=== PATIENT | male | born 1950 | race Caucasian/White ===

== ENCOUNTER → 2017-06-01 | Outpatient (CLI) | payer OTHER, MEDICAID ==
[~2017-06-01] MED LIST: LEXISCAN IV ONE
== END ==
LOC: RAD 08:10
PROVIDERS: ATTEND Internal Medicine Cardiovascular Disease
DX: I25.709 Atherosclerosis of coronary artery bypass graft(s), unspecified, with unspecified angina pectoris (principal); I10 Essential (primary) hypertension; E78.4 Other hyperlipidemia
CPT/HCPCS: 78452; 93017; A4222; A9502; J2785

== ENCOUNTER 2023-05-27 16:00 | Observation (INO) ==
[2023-05-27 16:43] VITALS: RESP 20
[2023-05-27 17:11] VITALS: BMI 26.3
[2023-05-27 18:07] LABS: BASOPHILS # (AUTO) 0.1 X10^3/uL (0.0-0.1); BASOPHILS % (AUTO) 0.7 % (0.2-1.0); EOSINOPHILS # (AUTO) 0.1 x10^3/uL (0.0-0.2); EOSINOPHILS % (AUTO) 0.9 % (0.9-2.9); HEMATOCRIT 35.8 % (36.0-47.0); HEMOGLOBIN 12.4 g/dL (12.0-16.0); LYMPHOCYTES # (AUTO) 1.8 X10^3/uL (1.3-2.9); LYMPHOCYTES % (AUTO) 25.1 % (21.0-51.0); MEAN CORPUSCULAR HEMOGLOBIN 28.8 pg (27.0-34.0); MEAN CORPUSCULAR HGB CONC 34.5 g/dL (33.0-35.0); MEAN CORPUSCULAR VOLUME 83.4 fL (80.0-100.0); MEAN PLATELET VOLUME 9.6 fL (7.4-11.0); MONOCYTES # (AUTO) 0.6 x10^3/uL (0.3-0.8); MONOCYTES % (AUTO) 7.9 % (0.0-13.0); NEUTROPHILS # (AUTO) 4.6 x10^3/uL (2.2-4.8); NEUTROPHILS % (AUTO) 65.4 % (42.0-75.0); PLATELET COUNT 197 X10^3/uL (150.0-450.0); RED BLOOD COUNT 4.29 X10^6/uL (3.5-5.4); RED CELL DISTRIBUTION WIDTH 13.8 % (11.6-16.5)
[2023-05-27] MEDS ORDERED: ZOFRAN INJ 4 MG VIAL IVP PRN (18:10)
[2023-05-27 18:24] LABS: ALANINE AMINOTRANSFERASE 18 Units/L (12-78); ALBUMIN 4.1 g/dL (3.4-5.0); ALKALINE PHOSPHATASE 104 Units/L (46-116); ASPARTATE AMINO TRANSFERASE 19 Units/L (15-37); BLOOD UREA NITROGEN 30 mg/dL (7-18); CALCIUM 9.4 mg/dL (8.5-10.1); CARBON DIOXIDE 34.8 mmol/L (21-32); CHLORIDE 92 mmol/L (98-107); CREATININE 1.59 mg/dL (0.55-1.02); GLUCOSE 101 mg/dL (65-99); POTASSIUM 3.2 mmol/L (3.5-5.1); SODIUM 134 mmol/L (136-145); TOTAL PROTEIN 7.8 g/dL (6.4-8.2); eGFR NON BLACK RACES 34 (>60)
[2023-05-27 18:44] LABS: AMYLASE 52 Units/L (25-115); LIPASE 139 Units/L (73-393)
[2023-05-27] MEDS ORDERED: CONSULT PHARMACY - POTASSIUM & MAGNESIUM XX SCH (19:00)
[2023-05-27] MEDS ORDERED: NS 1,000 ML IV 1,000 ML IV SCH (19:00)
[2023-05-27] MEDS: MAGNESIUM SULFATE 1 GRAM/100 mL PREMIX 1 G/100 ML BAG IV SCH ×2 (21:02→22:09)
[2023-05-27] MEDS: K-RIDER 10 MEQ/NS 100 ML 10 MEQ/100 ML BAG IV SCH (22:30)
--- NOTE | 2023-05-27 22:41 | RAD ---
HISTORYnausea and vomitingSTUDYKUBCOMPARISONNone FINDINGSMedian sternotomy wires are visible. Right upper quadrant clips are noted. There is stimulator type lead in the low pelvis overlying the level of the right SI joint. Visible lung bases are clear. The bowel gas pattern is nonobstructed. No free air.IMPRESSIONNothing acuteElectronically signed by: Salinas Jensen (May 27, 2023 22:40:14)
[2023-05-28] MEDS: K-RIDER 10 MEQ/NS 100 ML 10 MEQ/100 ML BAG IV SCH ×3 (01:28→03:21)
[2023-05-28 06:58] LABS: BASOPHILS % (AUTO) 0.7 % (0.2-1.0); EOSINOPHILS # (AUTO) 0.1 x10^3/uL (0.0-0.2); EOSINOPHILS % (AUTO) 1.8 % (0.9-2.9); HEMATOCRIT 32.6 % (36.0-47.0); HEMOGLOBIN 11.2 g/dL (12.0-16.0); LYMPHOCYTES # (AUTO) 1.5 X10^3/uL (1.3-2.9); LYMPHOCYTES % (AUTO) 29.1 % (21.0-51.0); MEAN CORPUSCULAR HEMOGLOBIN 28.6 pg (27.0-34.0); MEAN CORPUSCULAR HGB CONC 34.4 g/dL (33.0-35.0); MEAN PLATELET VOLUME 9.8 fL (7.4-11.0); MONOCYTES # (AUTO) 0.5 x10^3/uL (0.3-0.8); MONOCYTES % (AUTO) 9.2 % (0.0-13.0); NEUTROPHILS % (AUTO) 59.2 % (42.0-75.0); PLATELET COUNT 179 X10^3/uL (150.0-450.0); RED BLOOD COUNT 3.93 X10^6/uL (3.5-5.4)
[2023-05-28 07:16] LABS: ALANINE AMINOTRANSFERASE 17 Units/L (12-78); ALBUMIN 3.4 g/dL (3.4-5.0); ALKALINE PHOSPHATASE 87 Units/L (46-116); ASPARTATE AMINO TRANSFERASE 19 Units/L (15-37); BLOOD UREA NITROGEN 25 mg/dL (7-18); CARBON DIOXIDE 32.8 mmol/L (21-32); CHLORIDE 96 mmol/L (98-107); CREATININE 1.29 mg/dL (0.55-1.02); GLUCOSE 88 mg/dL (65-99); POTASSIUM 3.4 mmol/L (3.5-5.1); SODIUM 136 mmol/L (136-145); TOTAL PROTEIN 6.7 g/dL (6.4-8.2); eGFR NON BLACK RACES 43 (>60)
[2023-05-28] MEDS ORDERED: NS + KCL 20 MEQ/L 1,000 ML with MAGNESIUM SULFATE 50% INJ VIAL 1 G IV SCH ×2 (08:00)
[2023-05-28] MEDS ORDERED: CONSULT PHARMACY - POTASSIUM & MAGNESIUM XX SCH (08:00)
[2023-05-28] MEDS ORDERED: MAG-OX TAB PO SCH (08:00)
[2023-05-28] MEDS ORDERED: K-DUR TAB 20 MEQ PO SCH (08:00)
[2023-05-28] MEDS: LOVENOX INJ 40 MG SYR SC SCH (09:41)
--- NOTE | 2023-05-28 09:59 | DR.H&P ---
H&P - History & Physical for Day of: H&P Date: 05/27/23 - Chief Complaint Chief Complaint: NAUSEA, VOMITING, DIARRHEA - History of Present Illness History of Present Illness: IS A 73 YEAR OLD PATIENT OF OURS. SHE PRESENTED TO THE HOSPITAL A DIRECT ADMISSION, OBSERVATION STATUS, FOR TREATMENT OF DEHYDRATION DUE TO INTRACTABLE NAUSEA, VOMITING, AND DIARRHEA. PATIENT REPORTS THAT HER SYMPTOMS STARTED AROUND March AND HAVE BEEN PERSISTENT SINCE THEN. SHE STATES THAT SHE IS UNABLE TO KEEP ANYTHING DOWN. SHE HAS TAKEN PHENERGAN AT HOME WITHOUT IMPROVEMENT IN SYMPTOMS. SHE WAS GIVEN AN IM INJECTION OF PHENERGAN IN THE OFFICE 2 DAYS AGO. SHE REPORTS IMPROVEMENT AFTER INJECTION, HOWEVER, SYMPTOMS RETURNED LATER ON IN THE DAY. SHE REPORTS AN 8-10 POUND WEIGHT LOSS SINCE SYMPTOMS STARTED. HER PMH INCLUDES: COPD, HTN, CAD, HYP ERLIPIDEMIA, OVERACTIVE BLADDER, CHRONIC BACK PAIN, CABG, HYSTERECTOMY, ORTHO SURGERY. ON ARRIVAL TO THE HOSPITAL, HER VITALS WERE: 98.0-78-20-96%-104/56. LABS WERE OBTAINED. WBC 7.0, RBC 4.29, HGB 12.4, HCT 35.8, PLT COUNT 197, SODIUM 134, POTASSIUM 3.2, CHLORIDE 92, CARBON DIOXIDE 34.8, BUN 30, CREATININE 1.59, GLUCOSE 101, CALCIUM 9.4, TOTAL BILI 0.70, AST 19, ALT 18, ALK PHOS 104, TOTAL PROTEIN 7.8, ALBUMIN 4.1, AMYLASE 52, LIPASE 139, MAGNESIUM 1.7. A KUB WAS OBTAINED AND REVEALED:Median sternotomy wires are visible. Right upper quadrant clips are noted. There is stimulator type lead in the low pelvis overlying the level of the right SI joint. Visible lung bases are clear. The bowel gas pattern is nonobstructed. No free air. SHE WAS STARTED ON NORMAL SALINE WITH 20MEQ KCL AT 75 ML/HR, LOVENOX 40MG SC DAILY, ZOFRAN 4MG IV Q4H PRN. WE WILL RESUME HER HOME MEDICATIONS OF TOLTERODINE, ROSUVASTATIN, PERCOCET, OXYBUTYNIN, DULOXETINE, AND CLOPIDOGREL. WE WILL ORDER STOOL STUDIES AND A URINALYSIS. OTHERWISE, WE WILL FOLLOW-UP WITH AM LABS AND CONTINUE TO MONITOR. TIME SPENT ON CLINICAL ASSESSMENT, REVIEWING LABS AND IMAGING, DECISION MAKING, AND DOCUMENTATION GREATER THAN 75 MINUTES. - Past Medical History Past Medical History: COPD, Coronary Artery Disease, Dyslipidemia, Hypertension Additional Medical History: OVERACTIVE BLADDER, CHRONIC BACK PAIN - Past Surgical History Surgical History: CABG/Valve Surgery, Hysterectomy, Ortho Surgery - Family History Family Medical History: Diabetes Mellitus, Cancer, [place], Hypertension - Social History Does patient currently use any type of tobacco product: Yes Have you used tobacco products in the last 12 months: Yes Type of Tobacco Use: Cigarettes Alcohol Use: None Drug Use: None - Review of Systems Constitutional: Weakness. denies: Fever Eyes: No Symptoms Reported ENT: No Symptoms Reported Respiratory: No Symptoms Reported Cardiovascular: No Symptoms Reported Gastrointestinal: Nausea, Vomiting, Abdominal Pain, Diarrhea Genitourinary: No Symptoms Reported Musculoskeletal: No Symptoms Reported Skin: No Symptoms Reported Neurological: Weakness - Physical Exam Vital Signs: Vital Signs Temperature 97.7 F Pulse Rate [Left] 58 Respiratory Rate 20 Blood Pressure [Left Arm] 121/60 O2 Sat by Pulse Oximetry 92 Oriented: Normal Eyes: Normal Ear: Normal Nose: Normal Throat: Normal Respiratory: Diminished Throughout Cardiovascular: Normal : Normal Auscultation: Bowel Sounds: Normal Palpation: Normal Tenderness: Diffuse, Mild. negative: Rebound, Guarding, Rigidity Skin: Decreased Turgur Musculoskeletal: Back:Lumbar, Tender Psychiatric: Normal Mood Description: Calm Affect: Normal Speech Pattern: Clear - Assessment/Plan (1) Dehydration Status: Acute Plan: ADMIT, NORMAL SALINE WITH 20MEQ KCL AT 75 ML/HR, LOVENOX 40MG SC DAILY, ZOFRAN 4MG IV Q4H PRN, POTASSIUM AND MAGNESIUM PROTOCOLS (2) Nausea and vomiting Qualifiers: Vomiting type: unspecified Qualified Code(s): R11.2 - Nausea with vomiting, unspecified Status: Acute (3) Intractable diarrhea Status: Acute Plan: STOOL STUDIES (4) Hypokalemia Status: Acute (5) Hypomagnesemia Status: Acute (6) HTN (hypertension) Qualifiers: Hypertension type: primary hypertension Qualified Code(s): I10 - Essential (primary) hypertension Status: Chronic Plan: HOLD BP MEDS FOR NOW DUE TO HYPOTENSION (7) COPD (chronic obstructive pulmonary disease) Qualifiers: COPD type: COPD with acute exacerbation Qualified Code(s): J44.1 - Chronic obstructive pulmonary disease with (acute) exacerbation Status: Chronic Plan: 02 NEEDED, CONTINUE TO MONITOR (8) CAD (coronary artery disease) Qualifiers: Coronary Disease-Associated Artery/Lesion type: bypass graft [place] vs. transplanted heart: [place] heart Status: Chronic Plan: CONTINUE CLOPIDOGREL (9) Hyperlipidemia Qualifiers: Hyperlipidemia type: mixed hyperlipidemia Qualified Code(s): E78.2 - Mixed hyperlipidemia Status: Chronic Plan: CONTINUE ROSUVASTATIN (10) Overactive bladder Status: Chronic Plan: CONTINUE TOLTERODINE AND OXYBUTYNIN (11) Chronic back pain Qualifiers: Back pain location: low back pain Back pain laterality: unspecified Sciatica presence: unspecified whether sciatica present Qualified Code(s): M54.50 - Low back pain, unspecified; G89.29 - Other chronic pain Status: Chronic Plan: CONTINUE PERCOCET - Review H&P Reviewed: Yes Patient was examined?: Yes - Allergies Allergies/Adverse Reactions: Allergies Allergy/AdvReac Type Severity Reaction Status Date / Time aspirin Allergy Verified 04/05/21 10:34 citric acid Allergy Verified 04/05/21 10:34 iodine Allergy Verified 04/05/21 10:34 Penicillins Allergy Verified 04/05/21 10:34 prednisone Allergy Verified 04/05/21 10:34 Sulfa (Sulfonamide Allergy Verified 04/05/21 10:34 Antibiotics) [SULFA] wool Allergy Verified 04/05/21 10:34 - Medications Home Medications: Home Medications Medication Instructions Recorded Confirmed ciprofloxacin HCl 750 mg tablet 750 mg PO BID 05/27/23 05/27/23 clopidogrel 75 mg tablet 75 mg PO QDAY 05/27/23 05/27/23 diphenoxylate-atropine 2.5 1 tab PO QID 05/27/23 05/27/23 mg-0.025 mg tablet duloxetine 30 mg capsule,delayed 30 mg PO QDAY 05/27/23 05/27/23 release isosorbide mononitrate 60 mg 60 mg PO QAM 05/27/23 05/27/23 tablet,extended release 24 hr losartan 50 mg-hydrochlorothiazide 1 tab PO QDAY 05/27/23 05/27/23 12.5 mg tablet oxybutynin chloride 15 mg 15 mg PO QPM bladder pain 05/27/23 05/27/23 tablet,extended release 24 hr oxycodone-acetaminophen 5 mg-325 1 tab PO QID 05/27/23 05/27/23 mg tablet promethazine 25 mg tablet 25 mg PO Q6H nausea/vomiting 05/27/23 05/27/23 rosuvastatin 20 mg tablet 20 mg PO QDAY 05/27/23 05/27/23 tolterodine 4 mg capsule,extended 4 mg PO QPM bladder pain 05/27/23 05/27/23 release 24 hr
[2023-05-28] MEDS: PERCOCET TAB 5/325 MG PO SCH ×4 (10:52→20:33)
[2023-05-28] MEDS: NS + KCL 20 MEQ/L 1,000 ML IV SCH ×2 (10:52→22:46)
[2023-05-28] MEDS: PLAVIX PO SCH (10:53)
[2023-05-28] MEDS: PHENERGAN TAB 25 MG PO SCH ×3 (10:53→22:45)
[2023-05-28] MEDS ORDERED: CYMBALTA PO SCH (11:00)
[2023-05-28 12:18] LABS: CRYPTOSPORIDIUM PARVUM ANTIGEN NEGATIVE (NEGATIVE); GIARDIA LAMBLIA ANTIGEN NEGATIVE (NEGATIVE)
[2023-05-28] MEDS: ZITHROMAX TAB 250 MG PO SCH (13:47)
[2023-05-28] MEDS ORDERED: DETROL LA 4 MG CAP EXT REL PO SCH (21:00)
[2023-05-28] MEDS ORDERED: CRESTOR TAB 10 MG PO SCH (21:00)
[2023-05-28] MEDS ORDERED: OXYBUTYNIN CHLORIDE ER PO SCH (21:00)
[2023-05-28 22:04] LABS: BILIRUBIN,URINE NEGATIVE (NEGATIVE); BLOOD/HEMOGLOBIN,URINE 2+ (NEGATIVE); GLUCOSE, URINE NEGATIVE (NEGATIVE); KETONES,URINE NEGATIVE (NEGATIVE); LEUKOCYTE ESTERASE ,URINE 2+ (NEGATIVE); NITRITES,URINE POSITIVE (NEGATIVE); PROTEIN,URINE 1+ (NEGATIVE); UROBILINOGEN,URINE NORMAL (NORMAL)
[2023-05-28] MEDS ORDERED: TYLENOL 325 MG TAB PO PRN (22:09)
[2023-05-28 22:10] LABS: APPEARANCE,URINE SLIGHTLY HAZY (CLEAR); COLOR,URINE PALE YELLOW (YELLOW)
[2023-05-28 22:11] LABS: BACTERIA,URINE 2+ /HPF (NEGATIVE); RBC,URINE 0-2 /HPF (0-3); SQUAMOUS EPITHELIAL CELL,UR FEW /HPF (NEGATIVE)
[2023-05-29] MEDS: PHENERGAN TAB 25 MG PO SCH ×2 (05:05→12:14)
[2023-05-29 06:07] LABS: BASOPHILS % (AUTO) 0.8 % (0.2-1.0); EOSINOPHILS # (AUTO) 0.1 x10^3/uL (0.0-0.2); EOSINOPHILS % (AUTO) 2.4 % (0.9-2.9); HEMATOCRIT 30.4 % (36.0-47.0); HEMOGLOBIN 10.7 g/dL (12.0-16.0); LYMPHOCYTES # (AUTO) 1.7 X10^3/uL (1.3-2.9); LYMPHOCYTES % (AUTO) 32.7 % (21.0-51.0); MEAN CORPUSCULAR HGB CONC 35.1 g/dL (33.0-35.0); MEAN CORPUSCULAR VOLUME 82.7 fL (80.0-100.0); MEAN PLATELET VOLUME 9.7 fL (7.4-11.0); MONOCYTES # (AUTO) 0.5 x10^3/uL (0.3-0.8); MONOCYTES % (AUTO) 8.9 % (0.0-13.0); NEUTROPHILS # (AUTO) 2.8 x10^3/uL (2.2-4.8); NEUTROPHILS % (AUTO) 55.2 % (42.0-75.0); PLATELET COUNT 156 X10^3/uL (150.0-450.0); RED BLOOD COUNT 3.68 X10^6/uL (3.5-5.4); RED CELL DISTRIBUTION WIDTH 13.8 % (11.6-16.5); WHITE BLOOD COUNT 5.1 X10^3/uL (3.6-10.0)
[2023-05-29 06:17] LABS: ALANINE AMINOTRANSFERASE 14 Units/L (12-78); ALBUMIN 2.9 g/dL (3.4-5.0); ALKALINE PHOSPHATASE 82 Units/L (46-116); ASPARTATE AMINO TRANSFERASE 18 Units/L (15-37); BLOOD UREA NITROGEN 15 mg/dL (7-18); CALCIUM 8.2 mg/dL (8.5-10.1); CARBON DIOXIDE 33.6 mmol/L (21-32); CHLORIDE 98 mmol/L (98-107); COR CA(FOR HYPOALB) 9.1 mg/dL (8.5-10.1); CREATININE 1.25 mg/dL (0.55-1.02); GLUCOSE 90 mg/dL (65-99); POTASSIUM 3.9 mmol/L (3.5-5.1); SODIUM 135 mmol/L (136-145); TOTAL PROTEIN 5.9 g/dL (6.4-8.2); eGFR NON BLACK RACES 45 (>60)
[2023-05-29] MEDS ORDERED: ISOSORBIDE MONONITRATE ER 24-HR PO SCH (09:00)
[2023-05-29] MEDS: LOVENOX INJ 40 MG SYR SC SCH (09:33)
[2023-05-29] MEDS: ZITHROMAX TAB 250 MG PO SCH (09:34)
[2023-05-29] MEDS: PERCOCET TAB 5/325 MG PO SCH (09:34)
[2023-05-29] MEDS: PLAVIX PO SCH (09:34)
[2023-05-29 12:16] VITALS: BP 110/53; PULSE 57; TEMP 97.9; O2SAT 97
== END 2023-05-29 13:18 | disposition home or self-care (01) ==
LOC: MED/SURG
PROVIDERS: ADMIT Internal Medicine; ATTEND Internal Medicine

== ENCOUNTER 2023-09-03 09:11 | Inpatient (IN) ==
--- NOTE | 2023-09-03 09:17 | DR.EXTPAIN ---
HPI Time seen Time Seen by Provider: 09/03/23 09:30 Complaint/Symptoms Chief Complaint Doctor Comments: 73-year-old female brought in for evaluation by EMS. Patient was about to sit down to have coffee, when dogs attacked her dog outside. Patient went outside and was subsequently attacked by 2 pit bulls. Patient has a significant laceration of the right forearm. Also laceration of the L posterior foot/ankle. Bleeding controlled by EMS. Also has other puncture wounds, left hand, left forearm, left foot/ankle. Has been weak and lightheaded since the attack. Patient's BP low at the scene. Patient is on blood pressure medications, she states she has not been eating very well over the past few weeks due to needing her esophagus stretched. Denies recent illness, no fevers, chills, URI symptoms, bowel or bladder complaints. Having pain of the nares, plus pain of her right foot. No head injury, no loss of consciousness, no neck or back pain. Animal Control has reportedly taking cus tody of the dogs. Nurses notes reviewed Nurses Notes Review: Yes Source History Provided: Patient and EMS PMH PMH Past Medical History: COPD, Coronary Artery Disease, Dyslipidemia and Hypertension Past Surgical History: Yes Surgical History: CABG/Valve Surgery, Hysterectomy and Ortho Surgery Family History Family Medical History: Diabetes Mellitus, Cancer, [place] and Hypertension ROS Review of Systems Constitutional: Weakness Eyes: No Symptoms Reported ENTM: No Symptoms Reported Respiratoy: No Symptoms Reported Cardiovascular: No Symptoms Reported Gastrointestinal/Abdominal: No Symptoms Reported Genitourinary: No Symptoms Reported Neurological: No Symptoms Reported Musculoskeletal: See HPI Integumentary: See HPI All Other Systems: Reviewed and Negative PE Vital Signs Vitals: Vital Signs Pulse Rate 68 Pulse Rate 66 Pulse Rate 71 Pulse Rate 73 Pulse Rate 78 Pulse Rate 70 Pulse Rate 66 Pulse Rate 68 Pulse Rate 70 Pulse Rate 69 Pulse Rate 64 Pulse Rate 68 Pulse Rate 64 Respiratory Rate 20 Respiratory Rate 20 Respiratory Rate 20 Respiratory Rate 20 Respiratory Rate 20 Respiratory Rate 20 Respiratory Rate 20 Respiratory Rate 32 Blood Pressure 118/62 Blood Pressure 134/66 Blood Pressure 119/60 Blood Pressure 121/61 Blood Pressure 120/57 Blood Pressure 120/60 Blood Pressure 123/60 Blood Pressure 111/59 Blood Pressure 118/60 Blood Pressure 111/55 Blood Pressure 112/57 Blood Pressure 102/55 Blood Pressure 95/50 Blood Pressure 98/54 Blood Pressure 108/54 Blood Pressure 98/53 Blood Pressure 130/60 Blood Pressure 116/57 Blood Pressure 122/56 O2 Sat by Pulse Oximetry 97 O2 Sat by Pulse Oximetry 97 O2 Sat by Pulse Oximetry 98 O2 Sat by Pulse Oximetry 98 O2 Sat by Pulse Oximetry 98 O2 Sat by Pulse Oximetry 98 O2 Sat by Pulse Oximetry 98 O2 Sat by Pulse Oximetry 97 O2 Sat by Pulse Oximetry 95 O2 Sat by Pulse Oximetry 96 O2 Sat by Pulse Oximetry 100 O2 Sat by Pulse Oximetry 100 O2 Sat by Pulse Oximetry 96 General General Appearance: Alert and In Distress Head Head Exam: Normal Inspection Eyes Eye exam: PERRL and EOMI ENT ENT Exam: Normal Oropharynx and Mucous Membranes Moist Neck Neck Exam: Normal Inspection Respiratory Respiratory Exam: Normal Lung Sounds Bilat; negative Accessory Muscle Use or Respiratory Distress Cardiovascular Cardiovascular Exam: Regular Rate, Normal Rhythm and Normal Heart Sounds Abdominal Exam Abdominal Exam: Soft; negative Tenderness Lower Extremities Foot/Toe Exam: Tenderness (R great toe region ( no wounds there), L ankle/foot - several puncture wounds, lac) Neurological Neurological Exam: Alert, Oriented X3 and CN II-XII Intact; negative Motor Sensory Deficit Skin Skin Exam: Warm and Dry Other Exam Other Exam: Multiple wounds - R dorsal forearm, 2.5 x 3 cm open, macerated wound, loss of tissue, + oozing. + multiple puncture wounds - of volar R FA, dorsal L FA, L hand, multiple of L posterior ankle, 3 cm linear wound, well opposed, posterior L ankle, COURSE Treatment Treatment: 73-year-old female attacked by dogs today while trying to save her dog. Has multiple puncture wounds of her extremities, large open wound/loss of tissue of her right forearm. BP low on arrival, was given IV fluids by EMS. BP better on arrival. We will continue IV fluids. Will check baseline labs. Patient has not been eating well due to esophageal issues. Patient given IV morphine, IM Phenergan. We will x-ray the affected areas. Tetanus booster given. Pt is PCN allergic, given IV doxycycline. 1333 -consulted with surgery, Dr. Colmenares, for the open wound of her right forearm. Came to evaluate the patient. Recommended Xeroform to the arm, dressing. He will admit for obser vation, continue IV doxycycline and IV pain medicine as needed. [facility] Labs Reviewed Laboratory Results Reviewed?: Yes 09/03/23 09:34 11/09/23 09:34 Laboratory: WBC 9.9 X10^3/uL (3.6-10.0) 09/03/23 09:34 RBC 4.07 X10^6/uL (3.5-5.4) 09/03/23 09:34 Hgb 11.9 g/dL (12.0-16.0) L 09/03/23 09:34 Hct 36.0 % (36.0-47.0) 09/03/23 09:34 MCV 88.3 fL (80.0-100.0) 09/03/23 09:34 MCH 29.3 pg (27.0-34.0) 09/03/23 09:34 MCHC 33.2 g/dL (33.0-35.0) 09/03/23 09:34 RDW 14.5 % (11.6-16.5) 09/03/23 09:34 Plt Count 179 X10^3/uL (150.0-450.0) 09/03/23 09:34 MPV 10.4 fL (7.4-11.0) 09/03/23 09:34 Neut % (Auto) 69.5 % (42.0-75.0) 09/03/23 09:34 Lymph % (Auto) 22.9 % (21.0-51.0) 09/03/23 09:34 [place] % (Auto) 6.1 % (0.0-13.0) 09/03/23 09:34 Eos % (Auto) 1.0 % (0.9-2.9) 09/03/23 09:34 Baso % (Auto) 0.5 % (0.2-1.0) 09/03/23 09:34 Neut # (Auto) 6.9 x10^3/uL (2.2-4.8) H 09/03/23 09:34 Lymph # (Auto) 2.3 X10^3/uL (1.3-2.9) 09/03/23 09:34 [place] # (Auto) 0.6 x10^3/uL (0.3-0.8) 09/03/23 09:34 Eos # (Auto) 0.1 x10^3/uL (0.0-0.2) 09/03/23 09:34 Baso # (Auto) 0.0 X10^3/uL (0.0-0.1) 09/03/23 09:34 Absolute Nucleated RBC 0.0 /100WBC 09/03/23 09:34 Sodium 138 mmol/L (136-145) 09/03/23 09:34 Corrected Sodium 139 mmol/L (136-145) 09/03/23 09:34 Potassium 3.1 mmol/L (3.5-5.1) L 09/03/23 09:34 Chloride 102 mmol/L (98-107) 09/03/23 09:34 Carbon Dioxide 27.8 mmol/L (21-32) 09/03/23 09:34 BUN 15 mg/dL (7-18) 09/03/23 09:34 Creatinine 1.26 mg/dL (0.55-1.02) H 09/03/23 09:34 Est GFR (MDRD) Af Amer 54 (>60) L 09/03/23 09:34 Est GFR (MDRD) Non-Af 44 (>60) L 09/03/23 09:34 Glucose 125 mg/dL (65-99) H 09/03/23 09:34 Calcium 8.6 mg/dL (8.5-10.1) 09/03/23 09:34 Corrected Calcium 9.4 mg/dL (8.5-10.1) 09/03/23 09:34 Total Bilirubin 0.40 mg/dL (0.2-1.0) 09/03/23 09:34 AST 15 Units/L (15-37) 09/03/23 09:34 ALT 6 Units/L (12-78) L 09/03/23 09:34 Alkaline Phosphatase 87 Units/L (46-116) 09/03/23 09:34 Total Protein 6.4 g/dL (6.4-8.2) 09/03/23 09:34 Albumin 3.0 g/dL (3.4-5.0) L 09/03/23 09:34 Globulin 3.4 g/dL (2.5-4.5) 09/03/23 09:34 Albumin/Globulin Ratio 0.9 Ratio (1.1-2.1) L 09/03/23 09:34 XRAY XRAY Interpreted by: Self X-ray Results: No obvious fractures with multiple x-rays. Has gas in the soft tissue of the left posterior ankle region. Opioid Opioid Risk Tool Age (Justin box if 16-45): No History of Preadolescent Sexual Abuse: No Total: 0 Total Score Risk Category: Low Risk Copyright: Dony CORDOVA predicting aberrant behaviors Discharge Plan Diagnosis Discharge Problem: Open wound of right forearm, Dog bite of multiple sites Discharge Plan Patient Disposition: ADMITTED INPATIENT Condition: Stable Prescriptions: No Action oxybutynin chloride 15 mg tablet extended release 24hr 15 mg PO QPM gabapentin 400 mg capsule 400 mg PO QPM clopidogrel 75 mg tablet 75 mg PO QDAY pantoprazole 40 mg tablet,delayed release (DR/EC) 40 mg PO BID promethazine 25 mg tablet 25 mg PO Q6H PRN losartan-hydrochlorothiazide 50-12.5 mg tablet 1 tab PO QDAY rosuvastatin 20 mg tablet 20 mg PO QDAY duloxetine 30 mg capsule,delayed release(DR/EC) 30 mg PO QDAY isosorbide mononitrate 60 mg tablet extended release 24 hr 60 mg PO QAM Health Concerns: Post Hospitalization: new medications and changes needed to prevent readmission or further decline. Pt educated and given instructions on all concerns. Plan of Treatment: Continue with present treatment and follow up plan. Pt is to keep follow up appointment as instructed and take medications as ordered. Orders to Discharge Patient Discharge Orders: Transfer (Routine); Ordered 09/03/23 Ordered By: Kurtis Skaggs Follow ups/Referrals Follow ups/Referrals: Richard Schroeder [Primary Care Provider] - 3 days
[2023-09-03] MEDS ORDERED: ZOFRAN INJ 4 MG VIAL IVP ONE (09:18)
[2023-09-03] MEDS ORDERED: NS 500 ML IV 500 ML IV ONE ×2 (09:19→09:23)
[2023-09-03] MEDS ORDERED: ZOFRAN INJ 4 MG VIAL ONE (09:23)
[2023-09-03] MEDS ORDERED: MORPHINE SULFATE INJ 4 MG ONE (09:23)
[2023-09-03] MEDS ORDERED: PHENERGAN INJ 25 MG IM ONE ×2 (09:25→09:26)
[2023-09-03] MEDS: MORPHINE SULFATE INJ 4 MG IVP ONE ×3 (09:27→11:13)
[2023-09-03] MEDS ORDERED: ADACEL or BOOSTRIX TDaP VACCINE IM ONE ×2 (09:31→09:33)
[2023-09-03 09:43] LABS: BASOPHILS % (AUTO) 0.5 % (0.2-1.0); EOSINOPHILS # (AUTO) 0.1 x10^3/uL (0.0-0.2); HEMOGLOBIN 11.9 g/dL (12.0-16.0); LYMPHOCYTES # (AUTO) 2.3 X10^3/uL (1.3-2.9); LYMPHOCYTES % (AUTO) 22.9 % (21.0-51.0); MEAN CORPUSCULAR HEMOGLOBIN 29.3 pg (27.0-34.0); MEAN CORPUSCULAR HGB CONC 33.2 g/dL (33.0-35.0); MEAN CORPUSCULAR VOLUME 88.3 fL (80.0-100.0); MEAN PLATELET VOLUME 10.4 fL (7.4-11.0); MONOCYTES # (AUTO) 0.6 x10^3/uL (0.3-0.8); MONOCYTES % (AUTO) 6.1 % (0.0-13.0); NEUTROPHILS # (AUTO) 6.9 x10^3/uL (2.2-4.8); NEUTROPHILS % (AUTO) 69.5 % (42.0-75.0); PLATELET COUNT 179 X10^3/uL (150.0-450.0); RED BLOOD COUNT 4.07 X10^6/uL (3.5-5.4); RED CELL DISTRIBUTION WIDTH 14.5 % (11.6-16.5); WHITE BLOOD COUNT 9.9 X10^3/uL (3.6-10.0)
[2023-09-03 09:56] LABS: CALCIUM 8.6 mg/dL (8.5-10.1); CARBON DIOXIDE 27.8 mmol/L (21-32); COR CA(FOR HYPOALB) 9.4 mg/dL (8.5-10.1); CREATININE 1.26 mg/dL (0.55-1.02); POTASSIUM 3.1 mmol/L (3.5-5.1); TOTAL PROTEIN 6.4 g/dL (6.4-8.2)
[2023-09-03] MEDS ORDERED: NS 100 ML IV 100 ML ONE (10:04)
[2023-09-03] MEDS ORDERED: VIBRAMYCIN IV ONE (10:04)
[2023-09-03] MEDS ORDERED: NS 1,000 ML IV 1,000 ML ONE (10:05)
[2023-09-03] MEDS: VIBRAMYCIN 100 MG in D5W 250 ML IV 250 ML IV SCH ×2 (10:10→20:12)
[2023-09-03] MEDS ORDERED: DILAUDID INJ IVP ONE ×2 (10:21→11:15)
[2023-09-03] MEDS ORDERED: DILAUDID INJ ONE ×3 (10:23→13:39)
[2023-09-03] MEDS ORDERED: BACTROBAN TOPICAL OINT TOP ONE (10:33)
[2023-09-03] MEDS ORDERED: HYDROGEN PEROXIDE 3% ONE (10:38)
[2023-09-03] MEDS ORDERED: NEOSPORIN OINT ONE (10:38)
[2023-09-03] MEDS ORDERED: STERILE WATER IRRIGATION IR ONE ×2 (10:38→11:20)
[2023-09-03] MEDS ORDERED: BACITRACIN ZINC ONE (11:05)
[2023-09-03] MEDS ORDERED: NEOSPORIN OINT TOP ONE (11:18)
[2023-09-03] MEDS ORDERED: HYDROGEN PEROXIDE 3% EXT ONE (11:20)
[2023-09-03] MEDS ORDERED: NS 1,000 ML IV 1,000 ML IV SCH (12:00)
--- NOTE | 2023-09-03 13:00 | RAD ---
EXAM:CHEST, 1 VIEWHISTORY:ATTACKED BY DOGS;COMPARISON:NoneFINDINGS:Heart: The cardiomediastinal silhouette is normal in size.Lungs: No acute airspace disease.Pleural space: No conspicuous pneumothorax or effusion.Bones:The bony thorax appears age appropriate.IMPRESSION:1. No acute cardiopulmonary disease.THIS IS AN ELECTRONICALLY VERIFIED FINAL [id number]/03/2023 12:57 PM - Electronically signed by Nicola Blandon DO
[2023-09-03] MEDS ORDERED: DILAUDID INJ IVP STA (13:32)
[2023-09-03] MEDS ORDERED: PHENERGAN TAB 25 MG PO PRN (15:01)
[2023-09-03] MEDS ORDERED: CONSULT PHARMACY - POTASSIUM & MAGNESIUM XX SCH ×3 (15:01→22:00)
[2023-09-03 16:05] VITALS: BMI 24.5
[2023-09-03] MEDS: K-DUR TAB 20 MEQ PO SCH ×3 (17:01→20:12)
[2023-09-03] MEDS: D5 1/2 NS 1,000 ML 1,000 ML IV SCH (17:01)
[2023-09-03] MEDS: PERCOCET TAB 5/325 MG PO PRN (17:49)
--- NOTE | 2023-09-03 18:22 | RAD ---
EXAM:FOREARM, RIGHTHISTORY:ATTACKED BY DOGS;COMPARISON:None.TECHNIQUE:Right forearm x-ray series two viewsFINDINGS:Radiographic evidence of soft tissue injury and small amounts of subcutaneous gas at the site without radiopaque foreign body or acute fracture. The forearm remains anatomically aligned.IMPRESSION:Soft tissue injury and small amounts of subcutaneous gas of the mid forearm without fracture or radiopaque foreign bodyTHIS IS AN ELECTRONICALLY VERIFIED FINAL [id number]/03/2023 6:19 PM - Electronically signed by Isak Neff MD
[2023-09-03] MEDS: MAG-OX TAB PO SCH ×2 (20:13→20:41)
[2023-09-03] MEDS: PROTONIX TAB 40 MG PO SCH (20:13)
[2023-09-03] MEDS: OXYBUTYNIN CHLORIDE ER PO SCH (20:13)
[2023-09-03] MEDS: NEURONTIN CAP 400 MG PO SCH (20:26)
[2023-09-03] MEDS: DILAUDID INJ IVP PRN (20:37)
--- NOTE | 2023-09-03 20:49 | RAD ---
EXAM:HAND, LEFTHISTORY:ATTACKED BY DOGS;COMPARISON:None.TECHNIQUE:AP, lateral, and oblique views were acquired.FINDINGS:The alignment is anatomic. There is no fracture or dislocation. There is mild degeneration. There is no worrisome soft tissue abnormality.IMPRESSION:Nothing acute.THIS IS AN ELECTRONICALLY VERIFIED FINAL [id number]/03/2023 8:46 PM - Electronically signed by Chris Guillory MD
--- NOTE | 2023-09-03 20:51 | RAD ---
EXAM:FOOT, LEFTHISTORY:ATTACKED BY DOGS;COMPARISON:None.TECHNIQUE:AP and lateral views were acquiredFINDINGS:There is no fracture. There is mild degeneration in the forefoot. There is no joint effusion. There is some gas in the soft tissue on the dorsal aspect of the ankle anterior to the Achilles tendon..IMPRESSION:Soft tissue injury but no bone injury.THIS IS AN ELECTRONICALLY VERIFIED FINAL [id number]/03/2023 8:48 PM - Electronically signed by Chris Guillory MD
--- NOTE | 2023-09-03 20:53 | RAD ---
EXAM:FOOT, RIGHTHISTORY:ATTACKED BY DOGS;COMPARISON:None.TECHNIQUE:AP and lateral views were acquiredFINDINGS:There is no fracture. There is minor degeneration. There is a small plantar calcaneal spur. There is no joint effusion. Soft tissues are unremarkable.IMPRESSION:Nothing acute.THIS IS AN ELECTRONICALLY VERIFIED FINAL [id number]/03/2023 8:49 PM - Electronically signed by Chris Guillory MD
[2023-09-03] MEDS ORDERED: VIBRAMYCIN 100 MG in D5W 250 ML IV 250 ML IV SCH (21:00)
[2023-09-04] MEDS ORDERED: K-RIDER 10 MEQ/NS 100 ML 10 MEQ/100 ML BAG IV SCH
[2023-09-04] MEDS ORDERED: MAGNESIUM SULFATE 1 GRAM/100 mL PREMIX 1 G/100 ML BAG IV SCH
[2023-09-04] MEDS: DILAUDID INJ IVP PRN ×3 (00:46→20:58)
[2023-09-04] MEDS: PERCOCET TAB 5/325 MG PO PRN ×2 (04:22→08:25)
[2023-09-04 04:55] LABS: BILIRUBIN,URINE NEGATIVE (NEGATIVE); BLOOD/HEMOGLOBIN,URINE NEGATIVE (NEGATIVE); GLUCOSE, URINE NEGATIVE (NEGATIVE); KETONES,URINE NEGATIVE (NEGATIVE); LEUKOCYTE ESTERASE ,URINE 1+ (NEGATIVE); NITRITES,URINE NEGATIVE (NEGATIVE); PROTEIN,URINE 1+ (NEGATIVE); UROBILINOGEN,URINE NORMAL (NORMAL)
[2023-09-04 05:11] LABS: APPEARANCE,URINE SLIGHTLY HAZY (CLEAR); BACTERIA,URINE 1+ /HPF (NEGATIVE); COLOR,URINE DARK YELLOW (YELLOW); RBC,URINE NONE SEEN /HPF (0-3); SQUAMOUS EPITHELIAL CELL,UR MANY /HPF (NEGATIVE)
[2023-09-04 05:12] LABS: GRANULAR CASTS,URINE RARE /LPF (NEGATIVE); HYALINE CASTS, URINE RARE /LPF (NEGATIVE)
[2023-09-04] MEDS: D5 1/2 NS 1,000 ML 1,000 ML IV SCH ×3 (05:24→17:36)
[2023-09-04 06:11] LABS: BASOPHILS % (AUTO) 0.3 % (0.2-1.0); EOSINOPHILS % (AUTO) 0.2 % (0.9-2.9); HEMATOCRIT 29.9 % (36.0-47.0); HEMOGLOBIN 10.1 g/dL (12.0-16.0); LYMPHOCYTES # (AUTO) 1.3 X10^3/uL (1.3-2.9); LYMPHOCYTES % (AUTO) 21.4 % (21.0-51.0); MEAN CORPUSCULAR HEMOGLOBIN 29.5 pg (27.0-34.0); MEAN CORPUSCULAR HGB CONC 33.6 g/dL (33.0-35.0); MEAN CORPUSCULAR VOLUME 87.8 fL (80.0-100.0); MEAN PLATELET VOLUME 10.4 fL (7.4-11.0); MONOCYTES # (AUTO) 0.9 x10^3/uL (0.3-0.8); MONOCYTES % (AUTO) 14.5 % (0.0-13.0); NEUTROPHILS # (AUTO) 3.9 x10^3/uL (2.2-4.8); NEUTROPHILS % (AUTO) 63.6 % (42.0-75.0); PLATELET COUNT 134 X10^3/uL (150.0-450.0); RED BLOOD COUNT 3.41 X10^6/uL (3.5-5.4); RED CELL DISTRIBUTION WIDTH 14.4 % (11.6-16.5); WHITE BLOOD COUNT 6.1 X10^3/uL (3.6-10.0)
[2023-09-04 06:24] LABS: ALANINE AMINOTRANSFERASE 6 Units/L (12-78); ALBUMIN 2.5 g/dL (3.4-5.0); ALKALINE PHOSPHATASE 71 Units/L (46-116); ASPARTATE AMINO TRANSFERASE 19 Units/L (15-37); BLOOD UREA NITROGEN 14 mg/dL (7-18); CALCIUM 7.8 mg/dL (8.5-10.1); CARBON DIOXIDE 29.5 mmol/L (21-32); CHLORIDE 100 mmol/L (98-107); CREATININE 0.94 mg/dL (0.55-1.02); GLUCOSE 101 mg/dL (65-99); POTASSIUM 3.7 mmol/L (3.5-5.1); SODIUM 136 mmol/L (136-145); TOTAL PROTEIN 5.7 g/dL (6.4-8.2); eGFR NON BLACK RACES > 60 (>60)
[2023-09-04] MEDS ORDERED: CONSULT PHARMACY - POTASSIUM & MAGNESIUM XX SCH (07:00)
[2023-09-04] MEDS ORDERED: K-RIDER 10 MEQ/NS 100 ML 20 MEQ/200 ML BAG IV ONE (09:00)
[2023-09-04] MEDS: K-DUR TAB 20 MEQ PO SCH ×2 (10:45→20:34)
[2023-09-04] MEDS: HYZAAR 50/12.5 MG PO SCH (10:45)
[2023-09-04] MEDS: ISOSORBIDE MONONITRATE ER 24-HR PO SCH (10:45)
[2023-09-04] MEDS: CRESTOR TAB 10 MG PO SCH (10:46)
[2023-09-04] MEDS: PROTONIX TAB 40 MG PO SCH (10:46)
[2023-09-04] MEDS: CYMBALTA PO SCH ×2 (10:46→11:09)
[2023-09-04] MEDS: MAGNESIUM SULFATE 1 GRAM/100 mL PREMIX 1 G/100 ML BAG IV SCH ×2 (10:47→10:51)
[2023-09-04] MEDS: BENADRYL CAP/TAB 25 MG PO SCH ×2 (10:50→19:07)
[2023-09-04] MEDS: PLAVIX PO SCH (10:50)
[2023-09-04] MEDS ORDERED: BENADRYL CAP 50 MG PO SCH (11:00)
--- NOTE | 2023-09-04 13:05 | DR.PROGNOT ---
HOSPITAL PROGRESS NOTE Progress Note for Day of: Progress Note Date: 09/04/23 Chief Complaint Chief Complaint: Patient is complaining of pain at the dog bite site, complaining of numbness and difficulty walking on her left foot. White count is normal as well as the electrolytes. Afebrile and stable vital signs. Past Medical Family Social History Past Med/Fam/Surg Hx: No changes since H&P Allergies: Allergies aspirin Allergy (Verified 09/03/23 10:21) citric acid Allergy (Verified 09/03/23 10:) iodine Allergy (Verified 09/03/23 10:) Penicillins Allergy (Verified 09/03/23 10:) prednisone Allergy (Verified 09/03/23 10:) Sulfa (Sulfonamide Antibiotics) [SULFA] Allergy (Verified 09/03/23 10:) wool Allergy (Verified 09/03/23:) Vital Signs Vital Signs: Vital Signs Temperature 98.5 F Pulse Rate [Right] 69 Respiratory Rate 20 Respiratory Rate 20 Respiratory Rate 18 Blood Pressure [Left Arm] 111/52 O2 Sat by Pulse Oximetry 91 Physical Exam Oriented: Normal Eyes: Normal Ear: Normal Nose: Normal Throat: Normal Respiratory: Normal Cardiovascular: Normal GI:Auscultation: Normal Skin: Other (Patient has multiple lacerations on the right forearm left forearm and hand and both legs. No active infection..) Speech Pattern: Clear and Appropriate Laboratory and Diagnostics 09/04/23 05:39 09/04/23 05:39 Labs: Laboratory WBC 6.1 X10^3/uL (3.6-10.0) 09/04/23 05:39 RBC 3.41 X10^6/uL (3.5-5.4) L 09/04/23 05:39 Hgb 10.1 g/dL (12.0-16.0) L 09/04/23 05:39 Hct 29.9 % (36.0-47.0) L 09/04/23 05:39 MCV 87.8 fL (80.0-100.0) 09/04/23 05:39 MCH 29.5 pg (27.0-34.0) 09/04/23 05:39 MCHC 33.6 g/dL (33.0-35.0) 09/04/23 05:39 RDW 14.4 % (11.6-16.5) 09/04/23 05:39 Plt Count 134 X10^3/uL (150.0-450.0) L 09/04/23 05:39 MPV 10.4 fL (7.4-11.0) 09/04/23 05:39 Neut % (Auto) 63.6 % (42.0-75.0) 09/04/23 05:39 Lymph % (Auto) 21.4 % (21.0-51.0) 09/04/23 05:39 [place] % (Auto) 14.5 % (0.0-13.0) H 09/04/23 05:39 Eos % (Auto) 0.2 % (0.9-2.9) L 09/04/23 05:39 Baso % (Auto) 0.3 % (0.2-1.0) 09/04/23 05:39 Neut # (Auto) 3.9 x10^3/uL (2.2-4.8) 09/04/23 05:39 Lymph # (Auto) 1.3 X10^3/uL (1.3-2.9) 09/04/23 05:39 [place] # (Auto) 0.9 x10^3/uL (0.3-0.8) H 09/04/23 05:39 Eos # (Auto) 0.0 x10^3/uL (0.0-0.2) 09/04/23 05:39 Baso # (Auto) 0.0 X10^3/uL (0.0-0.1) 09/04/23 05:39 Absolute Nucleated RBC 0.1 /100WBC 09/04/23 05:39 Sodium 136 mmol/L (136-145) 09/04/23 05:39 Corrected Sodium TNP 09/04/23 05:39 Potassium 3.7 mmol/L (3.5-5.1) 09/04/23 05:39 Chloride 100 mmol/L (98-107) 09/04/23 05:39 Carbon Dioxide 29.5 mmol/L (21-32) 09/04/23 05:39 BUN 14 mg/dL (7-18) 09/04/23 05:39 Creatinine 0.94 mg/dL (0.55-1.02) 09/04/23 05:39 Est GFR (MDRD) Af Amer > 60 (>60) 09/04/23 05:39 Est GFR (MDRD) Non-Af > 60 (>60) 09/04/23 05:39 Glucose 101 mg/dL (65-99) H 09/04/23 05:39 POC Glucose (mg/dL) 106 mg/dL (65-99) H 09/04/23 05:08 Calcium 7.8 mg/dL (8.5-10.1) L 09/04/23 05:39 Corrected Calcium 9.0 mg/dL (8.5-10.1) 09/04/23 05:39 Magnesium 1.5 mg/dL (2.0-2.9) L 09/04/23 05:39 Total Bilirubin 0.80 mg/dL (0.2-1.0) 09/04/23 05:39 AST 19 Units/L (15-37) 09/04/23 05:39 ALT 6 Units/L (12-78) L 09/04/23 05:39 Alkaline Phosphatase 71 Units/L (46-116) 09/04/23 05:39 Total Protein 5.7 g/dL (6.4-8.2) L 09/04/23 05:39 Albumin 2.5 g/dL (3.4-5.0) L 09/04/23 05:39 Globulin 3.2 g/dL (2.5-4.5) 09/04/23 05:39 Albumin/Globulin Ratio 0.8 Ratio (1.1-2.1) L 09/04/23 05:39 Specimen Type Clean catch urine 09/04/23 04:45 Urine Color Dark yellow (YELLOW) 09/04/23 04:45 Urine Appearance Slightly hazy (CLEAR) 09/04/23 04:45 Urine pH 5.0 (5.0 - 8.0) 09/04/23 04:45 Ur Specific [place] 1.020 (1.000-1.030) 09/04/23 04:45 Urine Protein 1+ (NEGATIVE) 09/04/23 04:45 Urine Glucose (UA) Negative (NEGATIVE) 09/04/23 04:45 Urine Ketones Negative (NEGATIVE) 09/04/23 04:45 Urine Blood Negative (NEGATIVE) 09/04/23 04:45 Urine Nitrite Negative (NEGATIVE) 09/04/23 04:45 Urine Bilirubin Negative (NEGATIVE) 09/04/23 04:45 Urine Urobilinogen Normal (NORMAL) 09/04/23 04:45 Ur Leukocyte Esterase 1+ (NEGATIVE) 09/04/23 04:45 Urine RBC None seen /HPF (0-3) 09/04/23 04:45 Urine WBC 3-5 /HPF (0-5) 09/04/23 04:45 Ur Squamous Epith Cells Many /HPF (NEGATIVE) 09/04/23 04:45 Urine Bacteria 1+ /HPF (NEGATIVE) 09/04/23 04:45 Hyaline Casts Rare /LPF (NEGATIVE) 09/04/23 04:45 Granular Casts Rare /LPF (NEGATIVE) 09/04/23 04:45 Urine Mucus Few /HPF (NEGATIVE) 09/04/23 04:45 Ur Culture Indicated? No/not indicated 09/04/23 04:45 Assessment and Plan 1: Multiple dog bites on the upper and lower extremities.. To continue local care, pain control, IV antibiotics.. Problem Patient Problems: Patient Problems Open wound of right forearm (Acute) S51.801A Dog bite of multiple sites (Acute) W54.0XXA
--- NOTE | 2023-09-04 14:38 | DR.UPDATE ---
H&P UPDATE Review Yes Any changes to H&P?: No Patient was examined?: Yes
--- NOTE | 2023-09-04 14:44 | PCM.PROG ---
Progress Note Progress Note for Day of Date of Exam: 09/04/23 Subjective Subjective: PT IS 73 WF, ER ADMISSION WITH LACERATIONS TO RIGHT UPPER EXTREMITY AND BILATERAL LOWER EXTREMITIES FROM DOG BITES. PT WAS ASSESSED BY DR PARKER WITH CLEAN, INTACT DRESSINGS THIS MORNING. PT HAS BEEN ON IV OPIOID PAIN CONTROL, IV ATBX AND IV HDYRATION. PT CONTINUES TO CO PAIN TO WOUNDS THIS MORNING. PT STATES SHE TAKES NORCO 7.5 AT HOME FOR CHRONIC PAIN AND NEEDS HER HOME MEDICATION RESUMED. PT HAS PMH OF CAD WITH BYPASS, COPD, HTN, MUNDO, NEUROPATHY AND GERD. Past Medical Family Social History Past Med/Fam/Surg Hx: No changes since H&P Allergies: Allergies aspirin Allergy (Verified 09/03/23 10:21) citric acid Allergy (Verified 09/03/23 10:21) iodine Allergy (Verified 09/03/23 10:21) Penicillins Allergy (Verified 09/03/23 10:21) prednisone Allergy (Verified 09/03/23 10:21) Sulfa (Sulfonamide Antibiotics) [SULFA] Allergy (Verified 09/03/23 10:21) wool Allergy (Verified 09/03/23 10:21) Vital Signs and I&O's Vital Signs: Vital Signs Temperature 98.6 F Temperature 98.5 F Pulse Rate [Right] 70 Pulse Rate [Right] 69 Respiratory Rate 18 Respiratory Rate 20 Respiratory Rate 20 Blood Pressure [Left Arm] 117/56 Blood Pressure [Left Arm] 111/52 O2 Sat by Pulse Oximetry 93 O2 Sat by Pulse Oximetry 91 Intake and Output: Intake & Output 09/02/23 09/03/23 09/04/23 09/05/23 11:59 11:59 11:59 11:59 Intake Total 1580 / 1580 Balance 1580 / 1580 Physical Exam Nose: Normal Throat: Normal and Dry Respiratory: Normal and Diminished Cardiovascular: Normal (CABG SCAR PRESENT); negative Edema Auscultation: Bowel Sounds: Normal Skin: Other (Patient has multiple lacerations on the right forearm left forearm and hand and both legs. No active infection..) Musculoskeletal: Left, Shoulder and Elbow Psychiatric: Anxiety Mood Description: Anxious Affect: Anxious Speech Pattern: Clear and Appropriate Laboratory and Diagnostics 09/04/23 05:39 09/04/23 05:39 Labs: Laboratory WBC 6.1 X10^3/uL (3.6-10.0) 09/04/23 05:39 RBC 3.41 X10^6/uL (3.5-5.4) L 09/04/23 05:39 Hgb 10.1 g/dL (12.0-16.0) L 09/04/23 05:39 Hct 29.9 % (36.0-47.0) L 09/04/23 05:39 MCV 87.8 fL (80.0-100.0) 09/04/23 05:39 MCH 29.5 pg (27.0-34.0) 09/04/23 05:39 MCHC 33.6 g/dL (33.0-35.0) 09/04/23 05:39 RDW 14.4 % (11.6-16.5) 09/04/23 05:39 Plt Count 134 X10^3/uL (150.0-450.0) L 09/04/23 05:39 MPV 10.4 fL (7.4-11.0) 09/04/23 05:39 Neut % (Auto) 63.6 % (42.0-75.0) 09/04/23 05:39 Lymph % (Auto) 21.4 % (21.0-51.0) 09/04/23 05:39 [place] % (Auto) 14.5 % (0.0-13.0) H 09/04/23 05:39 Eos % (Auto) 0.2 % (0.9-2.9) L 09/04/23 05:39 Baso % (Auto) 0.3 % (0.2-1.0) 09/04/23 05:39 Neut # (Auto) 3.9 x10^3/uL (2.2-4.8) 09/04/23 05:39 Lymph # (Auto) 1.3 X10^3/uL (1.3-2.9) 09/04/23 05:39 [place] # (Auto) 0.9 x10^3/uL (0.3-0.8) H 09/04/23 05:39 Eos # (Auto) 0.0 x10^3/uL (0.0-0.2) 09/04/23 05:39 Baso # (Auto) 0.0 X10^3/uL (0.0-0.1) 09/04/23 05:39 Absolute Nucleated RBC 0.1 /100WBC 09/04/23 05:39 Sodium 136 mmol/L (136-145) 09/04/23 05:39 Corrected Sodium TNP 09/04/23 05:39 Potassium 3.7 mmol/L (3.5-5.1) 09/04/23 05:39 Chloride 100 mmol/L (98-107) 09/04/23 05:39 Carbon Dioxide 29.5 mmol/L (21-32) 09/04/23 05:39 BUN 14 mg/dL (7-18) 09/04/23 05:39 Creatinine 0.94 mg/dL (0.55-1.02) 09/04/23 05:39 Est GFR (MDRD) Af Amer > 60 (>60) 09/04/23 05:39 Est GFR (MDRD) Non-Af > 60 (>60) 09/04/23 05:39 Glucose 101 mg/dL (65-99) H 09/04/23 05:39 POC Glucose (mg/dL) 106 mg/dL (65-99) H 09/04/23 05:08 Calcium 7.8 mg/dL (8.5-10.1) L 09/04/23 05:39 Corrected Calcium 9.0 mg/dL (8.5-10.1) 09/04/23 05:39 Magnesium 1.5 mg/dL (2.0-2.9) L 09/04/23 05:39 Total Bilirubin 0.80 mg/dL (0.2-1.0) 09/04/23 05:39 AST 19 Units/L (15-37) 09/04/23 05:39 ALT 6 Units/L (12-78) L 09/04/23 05:39 Alkaline Phosphatase 71 Units/L (46-116) 09/04/23 05:39 Total Protein 5.7 g/dL (6.4-8.2) L 09/04/23 05:39 Albumin 2.5 g/dL (3.4-5.0) L 09/04/23 05:39 Globulin 3.2 g/dL (2.5-4.5) 09/04/23 05:39 Albumin/Globulin Ratio 0.8 Ratio (1.1-2.1) L 09/04/23 05:39 Specimen Type Clean catch urine 09/04/23 04:45 Urine Color Dark yellow (YELLOW) 09/04/23 04:45 Urine Appearance Slightly hazy (CLEAR) 09/04/23 04:45 Urine pH 5.0 (5.0 - 8.0) 09/04/23 04:45 Ur Specific [place] 1.020 (1.000-1.030) 09/04/23 04:45 Urine Protein 1+ (NEGATIVE) 09/04/23 04:45 Urine Glucose (UA) Negative (NEGATIVE) 09/04/23 04:45 Urine Ketones Negative (NEGATIVE) 09/04/23 04:45 Urine Blood Negative (NEGATIVE) 09/04/23 04:45 Urine Nitrite Negative (NEGATIVE) 09/04/23 04:45 Urine Bilirubin Negative (NEGATIVE) 09/04/23 04:45 Urine Urobilinogen Normal (NORMAL) 09/04/23 04:45 Ur Leukocyte Esterase 1+ (NEGATIVE) 09/04/23 04:45 Urine RBC None seen /HPF (0-3) 09/04/23 04:45 Urine WBC 3-5 /HPF (0-5) 09/04/23 04:45 Ur Squamous Epith Cells Many /HPF (NEGATIVE) 09/04/23 04:45 Urine Bacteria 1+ /HPF (NEGATIVE) 09/04/23 04:45 Hyaline Casts Rare /LPF (NEGATIVE) 09/04/23 04:45 Granular Casts Rare /LPF (NEGATIVE) 09/04/23 04:45 Urine Mucus Few /HPF (NEGATIVE) 09/04/23 04:45 Ur Culture Indicated? No/not indicated 09/04/23 04:45 Plan (1) Dog bite of multiple sites: Status: Acute Narrative Support Text: IV ATBX THERAPY, WOUND CARE IV HYDRATION. PAIN CONTROL CHRONIC DISEASE MANAGEMENT VERIFY AND RESUME HOME MEDICATION, REPEAT AM LABS BP CONTROL (2) Open wound of right forearm: Status: Acute (3) HTN (hypertension): Status: Chronic Qualifiers: Hypertension type: primary hypertension Qualified Code(s): I10 - Essential (primary) hypertension (4) COPD (chronic obstructive pulmonary disease): Status: Chronic Qualifiers: COPD type: COPD with acute exacerbation Qualified Code(s): J44.1 - Chronic obstructive pulmonary disease with (acute) exacerbation (5) CAD (coronary artery disease): Status: Chronic Qualifiers: Coronary Disease-Associated Artery/Lesion type: bypass graft [place] vs. transplanted heart: [place] heart
[2023-09-04] MEDS: VIBRAMYCIN 100 MG in D5W 250 ML IV 250 ML IV SCH (16:15)
[2023-09-04] MEDS: NORCO 10/325 TAB PO PRN (17:37)
[2023-09-04] MEDS: PROTONIX INJ 40 MG VIAL IVP SCH (20:35)
[2023-09-04] MEDS: OXYBUTYNIN CHLORIDE ER PO SCH (20:35)
[2023-09-04] MEDS: NEURONTIN CAP 400 MG PO SCH (20:36)
[2023-09-04] MEDS: COLACE CAP 100 MG PO SCH (20:36)
[2023-09-05] MEDS: D5 1/2 NS 1,000 ML 1,000 ML IV SCH ×4 (00:50→18:18)
[2023-09-05] MEDS: BENADRYL CAP/TAB 25 MG PO SCH ×3 (02:37→18:15)
[2023-09-05] MEDS: NORCO 10/325 TAB PO PRN (02:37)
[2023-09-05] MEDS: VIBRAMYCIN 100 MG in D5W 250 ML IV 250 ML IV SCH ×2 (03:39→16:07)
[2023-09-05] MEDS: DILAUDID INJ IVP PRN ×4 (05:38→22:06)
[2023-09-05 06:00] LABS: BASOPHILS % (AUTO) 0.3 % (0.2-1.0); EOSINOPHILS % (AUTO) 0.6 % (0.9-2.9); HEMATOCRIT 29.7 % (36.0-47.0); LYMPHOCYTES # (AUTO) 1.6 X10^3/uL (1.3-2.9); LYMPHOCYTES % (AUTO) 24.4 % (21.0-51.0); MEAN CORPUSCULAR HEMOGLOBIN 29.3 pg (27.0-34.0); MEAN CORPUSCULAR HGB CONC 33.7 g/dL (33.0-35.0); MEAN CORPUSCULAR VOLUME 86.8 fL (80.0-100.0); MEAN PLATELET VOLUME 10.7 fL (7.4-11.0); MONOCYTES # (AUTO) 0.7 x10^3/uL (0.3-0.8); MONOCYTES % (AUTO) 10.6 % (0.0-13.0); NEUTROPHILS # (AUTO) 4.1 x10^3/uL (2.2-4.8); NEUTROPHILS % (AUTO) 64.1 % (42.0-75.0); PLATELET COUNT 137 X10^3/uL (150.0-450.0); RED BLOOD COUNT 3.42 X10^6/uL (3.5-5.4); RED CELL DISTRIBUTION WIDTH 14.2 % (11.6-16.5); WHITE BLOOD COUNT 6.4 X10^3/uL (3.6-10.0)
[2023-09-05 06:22] LABS: ALANINE AMINOTRANSFERASE 7 Units/L (12-78); ALBUMIN 2.4 g/dL (3.4-5.0); ALKALINE PHOSPHATASE 76 Units/L (46-116); ASPARTATE AMINO TRANSFERASE 23 Units/L (15-37); BLOOD UREA NITROGEN 9 mg/dL (7-18); CALCIUM 7.9 mg/dL (8.5-10.1); CARBON DIOXIDE 29.5 mmol/L (21-32); CHLORIDE 99 mmol/L (98-107); COR CA(FOR HYPOALB) 9.2 mg/dL (8.5-10.1); CREATININE 0.98 mg/dL (0.55-1.02); GLUCOSE 101 mg/dL (65-99); MAGNESIUM 1.9 mg/dL (2.0-2.9); POTASSIUM 3.8 mmol/L (3.5-5.1); SODIUM 134 mmol/L (136-145); TOTAL PROTEIN 5.8 g/dL (6.4-8.2); eGFR NON BLACK RACES 59 (>60)
[2023-09-05] MEDS ORDERED: CONSULT PHARMACY - POTASSIUM & MAGNESIUM XX SCH (07:00)
[2023-09-05] MEDS: CRESTOR TAB 10 MG PO SCH (08:39)
[2023-09-05] MEDS: K-DUR TAB 20 MEQ PO SCH ×3 (08:39→20:33)
[2023-09-05] MEDS: HYZAAR 50/12.5 MG PO SCH (08:40)
[2023-09-05] MEDS: CYMBALTA PO SCH (08:40)
[2023-09-05] MEDS: PLAVIX PO SCH (08:40)
[2023-09-05] MEDS: ISOSORBIDE MONONITRATE ER 24-HR PO SCH (08:40)
[2023-09-05] MEDS: MAG-OX TAB PO SCH ×2 (08:46→09:39)
[2023-09-05] MEDS ORDERED: K-DUR TAB 20 MEQ PO SCH (09:00)
[2023-09-05] MEDS: PROTONIX INJ 40 MG VIAL IVP SCH ×2 (09:39→20:33)
[2023-09-05] MEDS: MARINOL PO SCH ×2 (13:35→20:35)
[2023-09-05] MEDS ORDERED: VIBRAMYCIN IV ONE (15:57)
--- NOTE | 2023-09-05 20:09 | PCM.PROG ---
Progress Note Progress Note for Day of Date of Exam: 09/05/23 Subjective Subjective: PT IS 73 WF, ER ADMISSION WITH LACERATIONS TO RIGHT UPPER EXTREMITY AND BILATERAL LOWER EXTREMITIES FROM DOG BITES. PT WAS ASSESSED BY DR PARKER WITH CLEAN, INTACT DRESSINGS THIS MORNING. PT HAS BEEN ON IV OPIOID PAIN CONTROL, IV ATBX AND IV HDYRATION. PT CONTINUES TO CO PAIN TO WOUNDS THIS MORNING. PT STATES SHE TAKES NORCO 7.5 AT HOME FOR CHRONIC PAIN AND NEEDS HER HOME MEDICATION RESUMED. PT HAS PMH OF CAD WITH BYPASS, COPD, HTN, MUNDO, NEUROPATHY AND GERD. Thursday, 05 September 2023 The patient reports she is feeling better this morning but her pain is still not controlled. I told her I would increase her Dilaudid a little bit to see if it would help with her pain. She still complains that when she eats she throws it up. I told her I will try her on some Marinol to see if that would help her keep it down and keep her from getting as nauseated as she has been getting. She tells me she is going to have an EGD and that Dr. Johnson will dilate her esophagus next week so hopefully, this will help her in the meantime. She still lives recovering from the dog attack that left her with severe lacerations to her right arm, left arm, and her legs. Past Medical Family Social History Past Med/Fam/Surg Hx: No changes since H&P Allergies: Allergies aspirin Allergy (Verified 09/03/23 10:21) citric acid Allergy (Verified 09/03/23 10:21) iodine Allergy (Verified 09/03/23 10:21) Penicillins Allergy (Verified 09/03/23 10:21) prednisone Allergy (Verified 09/03/23 10:21) Sulfa (Sulfonamide Antibiotics) [SULFA] Allergy (Verified 09/03/23 10:21) wool Allergy (Verified 09/03/23 10:21) Review of Systems ROS: No change since H&P Vital Signs and I&O's Vital Signs: Vital Signs Temperature 97.9 F Temperature 98.5 F Pulse Rate [Right] 60 Pulse Rate [Right] 76 Respiratory Rate 20 Respiratory Rate 18 Respiratory Rate 18 Respiratory Rate 18 Respiratory Rate 20 Respiratory Rate 18 Blood Pressure [Left Arm] 100/54 Blood Pressure [Left Arm] 111/60 O2 Sat by Pulse Oximetry 95 O2 Sat by Pulse Oximetry 95 Intake and Output: Intake & Output 09/02/23 09/03/23 09/04/23 09/05/23 11:59 11:59 11:59 11:59 Intake Total 1580 / 1580 2679 / 2679 Balance 1580 / 1580 2679 / 2679 Physical Exam Oriented: Normal Eyes: Normal Ear: Normal Nose: Normal Throat: Normal and Dry Respiratory: Normal and Diminished Cardiovascular: Normal (CABG SCAR PRESENT); negative Edema Auscultation: Bowel Sounds: Normal Skin: Other (Patient has multiple lacerations on the right forearm left forearm and hand and both legs. No active infection..) Musculoskeletal: Left, Shoulder and Elbow Psychiatric: Anxiety Mood Description: Anxious Affect: Anxious Speech Pattern: Clear and Appropriate Laboratory and Diagnostics 09/05/23 05:15 09/05/23 05:15 Labs: Laboratory WBC 6.4 X10^3/uL (3.6-10.0) 09/05/23 05:15 RBC 3.42 X10^6/uL (3.5-5.4) L 09/05/23 05:15 Hgb 10.0 g/dL (12.0-16.0) L 09/05/23 05:15 Hct 29.7 % (36.0-47.0) L 09/05/23 05:15 MCV 86.8 fL (80.0-100.0) 09/05/23 05:15 MCH 29.3 pg (27.0-34.0) 09/05/23 05:15 MCHC 33.7 g/dL (33.0-35.0) 09/05/23 05:15 RDW 14.2 % (11.6-16.5) 09/05/23 05:15 Plt Count 137 X10^3/uL (150.0-450.0) L 09/05/23 05:15 MPV 10.7 fL (7.4-11.0) 09/05/23 05:15 Neut % (Auto) 64.1 % (42.0-75.0) 09/05/23 05:15 Lymph % (Auto) 24.4 % (21.0-51.0) 09/05/23 05:15 [place] % (Auto) 10.6 % (0.0-13.0) 09/05/23 05:15 Eos % (Auto) 0.6 % (0.9-2.9) L 09/05/23 05:15 Baso % (Auto) 0.3 % (0.2-1.0) 09/05/23 05:15 Neut # (Auto) 4.1 x10^3/uL (2.2-4.8) 09/05/23 05:15 Lymph # (Auto) 1.6 X10^3/uL (1.3-2.9) 09/05/23 05:15 [place] # (Auto) 0.7 x10^3/uL (0.3-0.8) 09/05/23 05:15 Eos # (Auto) 0.0 x10^3/uL (0.0-0.2) 09/05/23 05:15 Baso # (Auto) 0.0 X10^3/uL (0.0-0.1) 09/05/23 05:15 Absolute Nucleated RBC 0.1 /100WBC 09/05/23 05:15 Sodium 134 mmol/L (136-145) L 09/05/23 05:15 Corrected Sodium TNP 09/05/23 05:15 Potassium 3.8 mmol/L (3.5-5.1) 09/05/23 05:15 Chloride 99 mmol/L (98-107) 09/05/23 05:15 Carbon Dioxide 29.5 mmol/L (21-32) 09/05/23 05:15 BUN 9 mg/dL (7-18) 09/05/23 05:15 Creatinine 0.98 mg/dL (0.55-1.02) 09/05/23 05:15 Est GFR (MDRD) Af Amer > 60 (>60) 09/05/23 05:15 Est GFR (MDRD) Non-Af 59 (>60) 09/05/23 05:15 Glucose 101 mg/dL (65-99) H 09/05/23 05:15 POC Glucose (mg/dL) 106 mg/dL (65-99) H 09/04/23 05:08 Calcium 7.9 mg/dL (8.5-10.1) L 09/05/23 05:15 Corrected Calcium 9.2 mg/dL (8.5-10.1) 09/05/23 05:15 Magnesium 1.9 mg/dL (2.0-2.9) L 09/05/23 05:15 Total Bilirubin 0.60 mg/dL (0.2-1.0) 09/05/23 05:15 AST 23 Units/L (15-37) 09/05/23 05:15 ALT 7 Units/L (12-78) L 09/05/23 05:15 Alkaline Phosphatase 76 Units/L (46-116) 09/05/23 05:15 Total Protein 5.8 g/dL (6.4-8.2) L 09/05/23 05:15 Albumin 2.4 g/dL (3.4-5.0) L 09/05/23 05:15 Globulin 3.4 g/dL (2.5-4.5) 09/05/23 05:15 Albumin/Globulin Ratio 0.7 Ratio (1.1-2.1) L 09/05/23 05:15 Specimen Type Clean catch urine 09/04/23 04:45 Urine Color Dark yellow (YELLOW) 09/04/23 04:45 Urine Appearance Slightly hazy (CLEAR) 09/04/23 04:45 Urine pH 5.0 (5.0 - 8.0) 09/04/23 04:45 Ur Specific [place] 1.020 (1.000-1.030) 09/04/23 04:45 Urine Protein 1+ (NEGATIVE) 09/04/23 04:45 Urine Glucose (UA) Negative (NEGATIVE) 09/04/23 04:45 Urine Ketones Negative (NEGATIVE) 09/04/23 04:45 Urine Blood Negative (NEGATIVE) 09/04/23 04:45 Urine Nitrite Negative (NEGATIVE) 09/04/23 04:45 Urine Bilirubin Negative (NEGATIVE) 09/04/23 04:45 Urine Urobilinogen Normal (NORMAL) 09/04/23 04:45 Ur Leukocyte Esterase 1+ (NEGATIVE) 09/04/23 04:45 Urine RBC None seen /HPF (0-3) 09/04/23 04:45 Urine WBC 3-5 /HPF (0-5) 09/04/23 04:45 Ur Squamous Epith Cells Many /HPF (NEGATIVE) 09/04/23 04:45 Urine Bacteria 1+ /HPF (NEGATIVE) 09/04/23 04:45 Hyaline Casts Rare /LPF (NEGATIVE) 09/04/23 04:45 Granular Casts Rare /LPF (NEGATIVE) 09/04/23 04:45 Urine Mucus Few /HPF (NEGATIVE) 09/04/23 04:45 Ur Culture Indicated? No/not indicated 09/04/23 04:45 Plan (1) Dog bite of multiple sites: Status: Acute (2) Open wound of right forearm: Status: Acute (3) HTN (hypertension): Status: Chronic Qualifiers: Hypertension type: primary hypertension Qualified Code(s): I10 - Essential (primary) hypertension (4) COPD (chronic obstructive pulmonary disease): Status: Chronic Qualifiers: COPD type: COPD with acute exacerbation Qualified Code(s): J44.1 - Chronic obstructive pulmonary disease with (acute) exacerbation (5) CAD (coronary artery disease): Status: Chronic Qualifiers: Coronary Disease-Associated Artery/Lesion type: bypass graft [place] vs. transplanted heart: [place] heart
[2023-09-05] MEDS: COLACE CAP 100 MG PO SCH (20:32)
[2023-09-05] MEDS: NEURONTIN CAP 400 MG PO SCH (20:32)
[2023-09-05] MEDS: OXYBUTYNIN CHLORIDE ER PO SCH (20:33)
[2023-09-06] MEDS: D5 1/2 NS 1,000 ML 1,000 ML IV SCH ×3 (02:26→18:25)
[2023-09-06] MEDS: BENADRYL CAP/TAB 25 MG PO SCH ×3 (02:26→18:25)
[2023-09-06] MEDS: VIBRAMYCIN 100 MG in D5W 250 ML IV 250 ML IV SCH ×2 (03:45→16:35)
[2023-09-06] MEDS: DILAUDID INJ IVP PRN ×2 (05:05→11:56)
[2023-09-06 05:52] LABS: BASOPHILS % (AUTO) 0.5 % (0.2-1.0); EOSINOPHILS % (AUTO) 0.9 % (0.9-2.9); HEMATOCRIT 30.6 % (36.0-47.0); HEMOGLOBIN 10.2 g/dL (12.0-16.0); LYMPHOCYTES # (AUTO) 1.1 X10^3/uL (1.3-2.9); LYMPHOCYTES % (AUTO) 22.7 % (21.0-51.0); MEAN CORPUSCULAR HEMOGLOBIN 29.1 pg (27.0-34.0); MEAN CORPUSCULAR HGB CONC 33.4 g/dL (33.0-35.0); MEAN CORPUSCULAR VOLUME 87.3 fL (80.0-100.0); MEAN PLATELET VOLUME 11.2 fL (7.4-11.0); MONOCYTES # (AUTO) 0.5 x10^3/uL (0.3-0.8); MONOCYTES % (AUTO) 10.5 % (0.0-13.0); NEUTROPHILS # (AUTO) 3.2 x10^3/uL (2.2-4.8); NEUTROPHILS % (AUTO) 65.4 % (42.0-75.0); PLATELET COUNT 142 X10^3/uL (150.0-450.0); RED BLOOD COUNT 3.51 X10^6/uL (3.5-5.4); RED CELL DISTRIBUTION WIDTH 14.1 % (11.6-16.5)
[2023-09-06 06:10] LABS: ALANINE AMINOTRANSFERASE 9 Units/L (12-78); ALBUMIN 2.6 g/dL (3.4-5.0); ALKALINE PHOSPHATASE 84 Units/L (46-116); ASPARTATE AMINO TRANSFERASE 26 Units/L (15-37); BLOOD UREA NITROGEN 7 mg/dL (7-18); CALCIUM 8.3 mg/dL (8.5-10.1); CARBON DIOXIDE 30.5 mmol/L (21-32); CHLORIDE 98 mmol/L (98-107); COR CA(FOR HYPOALB) 9.4 mg/dL (8.5-10.1); CREATININE 0.94 mg/dL (0.55-1.02); GLUCOSE 90 mg/dL (65-99); POTASSIUM 3.7 mmol/L (3.5-5.1); SODIUM 133 mmol/L (136-145); TOTAL PROTEIN 6.1 g/dL (6.4-8.2); eGFR NON BLACK RACES > 60 (>60)
[2023-09-06] MEDS ORDERED: CONSULT PHARMACY - POTASSIUM & MAGNESIUM XX SCH (07:00)
--- NOTE | 2023-09-06 07:45 | DR.PROGNOT ---
HOSPITAL PROGRESS NOTE Progress Note for Day of: Progress Note Date: 09/06/23 Chief Complaint Chief Complaint: still complaining of pain at the dog bite site, complaining of numbness and difficulty walking on her left foot. having difficulty swallowing . White count is normal as well as the electrolytes. Afebrile and stable vital signs. Past Medical Family Social History Allergies: Allergies aspirin Allergy (Verified 09/03/23 10:21) citric acid Allergy (Verified 09/03/23 10:21) iodine Allergy (Verified 09/03/23 10:21) Penicillins Allergy (Verified 09/03/23 10:21) prednisone Allergy (Verified 09/03/23 10:21) Sulfa (Sulfonamide Antibiotics) [SULFA] Allergy (Verified 09/03/23 10:21) wool Allergy (Verified 09/03/23 10:) Review Of Systems ROS: No change since H&P Vital Signs Vital Signs: Vital Signs Temperature 98.8 F Pulse Rate [Right] 65 Respiratory Rate 18 Respiratory Rate 18 Respiratory Rate 18 Blood Pressure [Left Arm] 99/56 O2 Sat by Pulse Oximetry 91 Physical Exam Oriented: Normal Eyes: Normal Ear: Normal Nose: Normal Throat: Normal and Dry Respiratory: Normal and Diminished Cardiovascular: Normal (CABG SCAR PRESENT); negative Edema GI:Auscultation: Normal Skin: Other (Patient has multiple lacerations on the right forearm left forearm and hand and both legs. No active infection..) Musculoskeletal: Left, Shoulder and Elbow Psychiatric: Anxiety Mood Description: Anxious Affect: Anxious Speech Pattern: Clear and Appropriate Laboratory and Diagnostics 09/06/23 04:55 09/06/23 04:55 Labs: Laboratory WBC 5.0 X10^3/uL (3.6-10.0) 09/06/23 04:55 RBC 3.51 X10^6/uL (3.5-5.4) 09/06/23 04:55 Hgb 10.2 g/dL (12.0-16.0) L 09/06/23 04:55 Hct 30.6 % (36.0-47.0) L 09/06/23 04:55 MCV 87.3 fL (80.0-100.0) 09/06/23 04:55 MCH 29.1 pg (27.0-34.0) 09/06/23 04:55 MCHC 33.4 g/dL (33.0-35.0) 09/06/23 04:55 RDW 14.1 % (11.6-16.5) 09/06/23 04:55 Plt Count 142 X10^3/uL (150.0-450.0) L 09/06/23 04:55 MPV 11.2 fL (7.4-11.0) H 09/06/23 04:55 Neut % (Auto) 65.4 % (42.0-75.0) 09/06/23 04:55 Lymph % (Auto) 22.7 % (21.0-51.0) 09/06/23 04:55 [place] % (Auto) 10.5 % (0.0-13.0) 09/06/23 04:55 Eos % (Auto) 0.9 % (0.9-2.9) 09/06/23 04:55 Baso % (Auto) 0.5 % (0.2-1.0) 09/06/23 04:55 Neut # (Auto) 3.2 x10^3/uL (2.2-4.8) 09/06/23 04:55 Lymph # (Auto) 1.1 X10^3/uL (1.3-2.9) L 09/06/23 04:55 [place] # (Auto) 0.5 x10^3/uL (0.3-0.8) 09/06/23 04:55 Eos # (Auto) 0.0 x10^3/uL (0.0-0.2) 09/06/23 04:55 Baso # (Auto) 0.0 X10^3/uL (0.0-0.1) 09/06/23 04:55 Absolute Nucleated RBC 0.0 /100WBC 09/06/23 04:55 Sodium 133 mmol/L (136-145) L 09/06/23 04:55 Corrected Sodium TNP 09/06/23 04:55 Potassium 3.7 mmol/L (3.5-5.1) 09/06/23 04:55 Chloride 98 mmol/L (98-107) 09/06/23 04:55 Carbon Dioxide 30.5 mmol/L (21-32) 09/06/23 04:55 BUN 7 mg/dL (7-18) 09/06/23 04:55 Creatinine 0.94 mg/dL (0.55-1.02) 09/06/23 04:55 Est GFR (MDRD) Af Amer > 60 (>60) 09/06/23 04:55 Est GFR (MDRD) Non-Af > 60 (>60) 09/06/23 04:55 Glucose 90 mg/dL (65-99) 09/06/23 04:55 POC Glucose (mg/dL) 106 mg/dL (65-99) H 09/04/23 05:08 Calcium 8.3 mg/dL (8.5-10.1) L 09/06/23 04:55 Corrected Calcium 9.4 mg/dL (8.5-10.1) 09/06/23 04:55 Magnesium 1.6 mg/dL (2.0-2.9) L 09/06/23 04:55 Total Bilirubin 0.70 mg/dL (0.2-1.0) 09/06/23 04:55 AST 26 Units/L (15-37) 09/06/23 04:55 ALT 9 Units/L (12-78) L 09/06/23 04:55 Alkaline Phosphatase 84 Units/L (46-116) 09/06/23 04:55 Total Protein 6.1 g/dL (6.4-8.2) L 09/06/23 04:55 Albumin 2.6 g/dL (3.4-5.0) L 09/06/23 04:55 Globulin 3.5 g/dL (2.5-4.5) 09/06/23 04:55 Albumin/Globulin Ratio 0.7 Ratio (1.1-2.1) L 09/06/23 04:55 Specimen Type Clean catch urine 09/04/23 04:45 Urine Color Dark yellow (YELLOW) 09/04/23 04:45 Urine Appearance Slightly hazy (CLEAR) 09/04/23 04:45 Urine pH 5.0 (5.0 - 8.0) 09/04/23 04:45 Ur Specific [place] 1.020 (1.000-1.030) 09/04/23 04:45 Urine Protein 1+ (NEGATIVE) 09/04/23 04:45 Urine Glucose (UA) Negative (NEGATIVE) 09/04/23 04:45 Urine Ketones Negative (NEGATIVE) 09/04/23 04:45 Urine Blood Negative (NEGATIVE) 09/04/23 04:45 Urine Nitrite Negative (NEGATIVE) 09/04/23 04:45 Urine Bilirubin Negative (NEGATIVE) 09/04/23 04:45 Urine Urobilinogen Normal (NORMAL) 09/04/23 04:45 Ur Leukocyte Esterase 1+ (NEGATIVE) 09/04/23 04:45 Urine RBC None seen /HPF (0-3) 09/04/23 04:45 Urine WBC 3-5 /HPF (0-5) 09/04/23 04:45 Ur Squamous Epith Cells Many /HPF (NEGATIVE) 09/04/23 04:45 Urine Bacteria 1+ /HPF (NEGATIVE) 09/04/23 04:45 Hyaline Casts Rare /LPF (NEGATIVE) 09/04/23 04:45 Granular Casts Rare /LPF (NEGATIVE) 09/04/23 04:45 Urine Mucus Few /HPF (NEGATIVE) 09/04/23 04:45 Ur Culture Indicated? No/not indicated 09/04/23 04:45 Assessment and Plan 1: Multiple dog bites on the upper and lower extremities.. To continue local care, pain control, IV antibiotics.. to ambulate with walker . d/c in Am . 2: dysphagia . for EGD and dilation next week .. Problem Patient Problems: Patient Problems Open wound of right forearm (Acute) S51.801A Dog bite of multiple sites (Acute) W54.0XXA
[2023-09-06] MEDS: NORCO 10/325 TAB PO PRN (08:16)
[2023-09-06] MEDS: PLAVIX PO SCH (08:16)
[2023-09-06] MEDS: ISOSORBIDE MONONITRATE ER 24-HR PO SCH (08:16)
[2023-09-06] MEDS: CRESTOR TAB 10 MG PO SCH (08:16)
[2023-09-06] MEDS: CYMBALTA PO SCH (08:20)
[2023-09-06] MEDS: K-DUR TAB 20 MEQ PO SCH ×2 (08:20→20:10)
[2023-09-06] MEDS: MAG-OX TAB PO SCH ×2 (08:21→10:32)
[2023-09-06] MEDS: PROTONIX INJ 40 MG VIAL IVP SCH ×2 (08:21→20:10)
[2023-09-06] MEDS ORDERED: K-DUR TAB 20 MEQ PO SCH (09:00)
[2023-09-06] MEDS: HYZAAR 50/12.5 MG PO SCH (09:52)
--- NOTE | 2023-09-06 10:51 | RAD ---
EXAM:Portable AP chestHISTORY:COPDCOMPARISON:September 03, 2023FINDINGS:Heart size remains normal with sternal wires, clear lungs and pleural spaces.IMPRESSION:No interval change or acute/significant abnormality. Similar findings of median sternotomy.THIS IS AN ELECTRONICALLY VERIFIED FINAL [id number]/[id number] 10:48 AM - Electronically signed by Saravanan Martinez MD
[2023-09-06] MEDS: MARINOL PO SCH ×2 (10:53→20:42)
--- NOTE | 2023-09-06 16:40 | PCM.PROG ---
Progress Note Progress Note for Day of Date of Exam: 09/06/23 Subjective Subjective: PT IS 73 WF, ER ADMISSION WITH LACERATIONS TO RIGHT UPPER EXTREMITY AND BILATERAL LOWER EXTREMITIES FROM DOG BITES. PT WAS ASSESSED BY DR PARKER WITH CLEAN, INTACT DRESSINGS THIS MORNING. PT HAS BEEN ON IV OPIOID PAIN CONTROL, IV ATBX AND IV HDYRATION. PT CONTINUES TO CO PAIN TO WOUNDS THIS MORNING. PT STATES SHE TAKES NORCO 7.5 AT HOME FOR CHRONIC PAIN AND NEEDS HER HOME MEDICATION RESUMED. PT HAS PMH OF CAD WITH BYPASS, COPD, HTN, MUNDO, NEUROPATHY AND GERD. Thursday, 05 September 2023 The patient reports she is feeling better this morning but her pain is still not controlled. I told her I would increase her Dilaudid a little bit to see if it would help with her pain. She still complains that when she eats she throws it up. I told her I will try her on some Marinol to see if that would help her keep it down and keep her from getting as nauseated as she has been getting. She tells me she is going to have an EGD and that Dr. Johnson will dilate her esophagus next week so hopefully, this will help her in the meantime. She still lives recovering from the dog attack that left her with severe lacerations to her right arm, left arm, and her legs. 06 September 2023 The patient is mildly irritable this morning. She wants to go outside and smoke. I offered her a nicotine patch but she states that she is allergic to them. I will able to convince her to stay as she was thinking about checking out AMA. Dr. Johnson plans on discharging her tomorrow so she will receive another 24 hours of IV antibiotics. Her white blood cell count remains normal at 5000 today. Continue current treatment with out any changes today. Past Medical Family Social History Past Med/Fam/Surg Hx: No changes since H&P Allergies: Allergies aspirin Allergy (Verified 09/03/23 10:21) citric acid Allergy (Verified 09/03/23 10:21) iodine Allergy (Verified 09/03/23 10:21) Penicillins Allergy (Verified 09/03/23 10:21) prednisone Allergy (Verified 09/03/23 10:21) Sulfa (Sulfonamide Antibiotics) [SULFA] Allergy (Verified 09/03/23 10:21) wool Allergy (Verified 09/03/23 10:21) Review of Systems ROS: No change since H&P Vital Signs and I&O's Vital Signs: Vital Signs Temperature 97.9 F Temperature 97.8 F Pulse Rate [Right] 76 Pulse Rate [Right] 67 Respiratory Rate 20 Respiratory Rate 18 Respiratory Rate 20 Respiratory Rate 18 Respiratory Rate 18 Blood Pressure [Left Arm] 119/53 Blood Pressure [Left Arm] 101/53 O2 Sat by Pulse Oximetry 93 O2 Sat by Pulse Oximetry 93 Intake and Output: Intake & Output 09/04/23 09/05/23 09/06/23 09/07/23 11:59 11:59 11:59 11:59 Intake Total 1580 / 1580 2679 / 2679 1500 / 1500 1373 / 1373 Balance 1580 / 1580 2679 / 2679 1500 / 1500 1373 / 1373 Physical Exam Oriented: Normal Eyes: Normal Ear: Normal Nose: Normal Throat: Normal and Dry Respiratory: Normal and Diminished Cardiovascular: Normal (CABG SCAR PRESENT); negative Edema Auscultation: Bowel Sounds: Normal Skin: Other (Patient has multiple lacerations on the right forearm left forearm and hand and both legs. No active infection..) Musculoskeletal: Left, Shoulder and Elbow Psychiatric: Anxiety Mood Description: Anxious Affect: Anxious Speech Pattern: Clear and Appropriate Laboratory and Diagnostics 09/06/23 04:55 09/06/23 04:55 Labs: Laboratory WBC 5.0 X10^3/uL (3.6-10.0) 09/06/23 04:55 RBC 3.51 X10^6/uL (3.5-5.4) 09/06/23 04:55 Hgb 10.2 g/dL (12.0-16.0) L 09/06/23 04:55 Hct 30.6 % (36.0-47.0) L 09/06/23 04:55 MCV 87.3 fL (80.0-100.0) 09/06/23 04:55 MCH 29.1 pg (27.0-34.0) 09/06/23 04:55 MCHC 33.4 g/dL (33.0-35.0) 09/06/23 04:55 RDW 14.1 % (11.6-16.5) 09/06/23 04:55 Plt Count 142 X10^3/uL (150.0-450.0) L 09/06/23 04:55 MPV 11.2 fL (7.4-11.0) H 09/06/23 04:55 Neut % (Auto) 65.4 % (42.0-75.0) 09/06/23 04:55 Lymph % (Auto) 22.7 % (21.0-51.0) 09/06/23 04:55 Emmet % (Auto) 10.5 % (0.0-13.0) 09/06/23 04:55 Eos % (Auto) 0.9 % (0.9-2.9) 09/06/23 04:55 Baso % (Auto) 0.5 % (0.2-1.0) 09/06/23 04:55 Neut # (Auto) 3.2 x10^3/uL (2.2-4.8) 09/06/23 04:55 Lymph # (Auto) 1.1 X10^3/uL (1.3-2.9) L 09/06/23 04:55 Emmet # (Auto) 0.5 x10^3/uL (0.3-0.8) 09/06/23 04:55 Eos # (Auto) 0.0 x10^3/uL (0.0-0.2) 09/06/23 04:55 Baso # (Auto) 0.0 X10^3/uL (0.0-0.1) 09/06/23 04:55 Absolute Nucleated RBC 0.0 /100WBC 09/06/23 04:55 Sodium 133 mmol/L (136-145) L 09/06/23 04:55 Corrected Sodium TNP 09/06/23 04:55 Potassium 3.7 mmol/L (3.5-5.1) 09/06/23 04:55 Chloride 98 mmol/L (98-107) 09/06/23 04:55 Carbon Dioxide 30.5 mmol/L (21-32) 09/06/23 04:55 BUN 7 mg/dL (7-18) 09/06/23 04:55 Creatinine 0.94 mg/dL (0.55-1.02) 09/06/23 04:55 Est GFR (MDRD) Af Amer > 60 (>60) 09/06/23 04:55 Est GFR (MDRD) Non-Af > 60 (>60) 09/06/23 04:55 Glucose 90 mg/dL (65-99) 09/06/23 04:55 POC Glucose (mg/dL) 106 mg/dL (65-99) H 09/04/23 05:08 Calcium 8.3 mg/dL (8.5-10.1) L 09/06/23 04:55 Corrected Calcium 9.4 mg/dL (8.5-10.1) 09/06/23 04:55 Magnesium 1.6 mg/dL (2.0-2.9) L 09/06/23 04:55 Total Bilirubin 0.70 mg/dL (0.2-1.0) 09/06/23 04:55 AST 26 Units/L (15-37) 09/06/23 04:55 ALT 9 Units/L (12-78) L 09/06/23 04:55 Alkaline Phosphatase 84 Units/L (46-116) 09/06/23 04:55 Total Protein 6.1 g/dL (6.4-8.2) L 09/06/23 04:55 Albumin 2.6 g/dL (3.4-5.0) L 09/06/23 04:55 Globulin 3.5 g/dL (2.5-4.5) 09/06/23 04:55 Albumin/Globulin Ratio 0.7 Ratio (1.1-2.1) L 09/06/23 04:55 Specimen Type Clean catch urine 09/04/23 04:45 Urine Color Dark yellow (YELLOW) 09/04/23 04:45 Urine Appearance Slightly hazy (CLEAR) 09/04/23 04:45 Urine pH 5.0 (5.0 - 8.0) 09/04/23 04:45 Ur Specific Bates 1.020 (1.000-1.030) 09/04/23 04:45 Urine Protein 1+ (NEGATIVE) 09/04/23 04:45 Urine Glucose (UA) Negative (NEGATIVE) 09/04/23 04:45 Urine Ketones Negative (NEGATIVE) 09/04/23 04:45 Urine Blood Negative (NEGATIVE) 09/04/23 04:45 Urine Nitrite Negative (NEGATIVE) 09/04/23 04:45 Urine Bilirubin Negative (NEGATIVE) 09/04/23 04:45 Urine Urobilinogen Normal (NORMAL) 09/04/23 04:45 Ur Leukocyte Esterase 1+ (NEGATIVE) 09/04/23 04:45 Urine RBC None seen /HPF (0-3) 09/04/23 04:45 Urine WBC 3-5 /HPF (0-5) 09/04/23 04:45 Ur Squamous Epith Cells Many /HPF (NEGATIVE) 09/04/23 04:45 Urine Bacteria 1+ /HPF (NEGATIVE) 09/04/23 04:45 Hyaline Casts Rare /LPF (NEGATIVE) 09/04/23 04:45 Granular Casts Rare /LPF (NEGATIVE) 09/04/23 04:45 Urine Mucus Few /HPF (NEGATIVE) 09/04/23 04:45 Ur Culture Indicated? No/not indicated 09/04/23 04:45 Plan (1) Dog bite of multiple sites: Status: Acute (2) Open wound of right forearm: Status: Acute (3) HTN (hypertension): Status: Chronic Qualifiers: Hypertension type: primary hypertension Qualified Code(s): I10 - Essential (primary) hypertension (4) COPD (chronic obstructive pulmonary disease): Status: Chronic Qualifiers: COPD type: COPD with acute exacerbation Qualified Code(s): J44.1 - Chronic obstructive pulmonary disease with (acute) exacerbation (5) CAD (coronary artery disease): Status: Chronic Qualifiers: Coronary Disease-Associated Artery/Lesion type: bypass graft [place] vs. transplanted heart: [place]
[2023-09-06] MEDS: OXYBUTYNIN CHLORIDE ER PO SCH (20:10)
[2023-09-06] MEDS: COLACE CAP 100 MG PO SCH (20:41)
[2023-09-07] MEDS: D5 1/2 NS 1,000 ML 1,000 ML IV SCH (01:23)
[2023-09-07] MEDS: VIBRAMYCIN 100 MG in D5W 250 ML IV 250 ML IV SCH (03:06)
[2023-09-07] MEDS: BENADRYL CAP/TAB 25 MG PO SCH (03:29)
[2023-09-07 05:03] VITALS: TEMP 98.6; O2SAT 93
[2023-09-07 06:14] LABS: BASOPHILS % (AUTO) 0.6 % (0.2-1.0); EOSINOPHILS # (AUTO) 0.1 x10^3/uL (0.0-0.2); EOSINOPHILS % (AUTO) 2.1 % (0.9-2.9); HEMATOCRIT 30.6 % (36.0-47.0); HEMOGLOBIN 10.4 g/dL (12.0-16.0); LYMPHOCYTES # (AUTO) 1.1 X10^3/uL (1.3-2.9); LYMPHOCYTES % (AUTO) 23.6 % (21.0-51.0); MEAN CORPUSCULAR HEMOGLOBIN 29.2 pg (27.0-34.0); MEAN CORPUSCULAR HGB CONC 33.8 g/dL (33.0-35.0); MEAN CORPUSCULAR VOLUME 86.3 fL (80.0-100.0); MEAN PLATELET VOLUME 10.3 fL (7.4-11.0); MONOCYTES # (AUTO) 0.7 x10^3/uL (0.3-0.8); MONOCYTES % (AUTO) 13.8 % (0.0-13.0); NEUTROPHILS # (AUTO) 2.9 x10^3/uL (2.2-4.8); NEUTROPHILS % (AUTO) 59.9 % (42.0-75.0); PLATELET COUNT 149 X10^3/uL (150.0-450.0); RED BLOOD COUNT 3.55 X10^6/uL (3.5-5.4); RED CELL DISTRIBUTION WIDTH 13.9 % (11.6-16.5)
[2023-09-07 06:21] LABS: ALANINE AMINOTRANSFERASE 9 Units/L (12-78); ALBUMIN 2.3 g/dL (3.4-5.0); ALKALINE PHOSPHATASE 75 Units/L (46-116); ASPARTATE AMINO TRANSFERASE 27 Units/L (15-37); BLOOD UREA NITROGEN 6 mg/dL (7-18); CALCIUM 8.2 mg/dL (8.5-10.1); CARBON DIOXIDE 30.1 mmol/L (21-32); CHLORIDE 102 mmol/L (98-107); COR CA(FOR HYPOALB) 9.6 mg/dL (8.5-10.1); CREATININE 0.89 mg/dL (0.55-1.02); GLUCOSE 93 mg/dL (65-99); MAGNESIUM 1.6 mg/dL (2.0-2.9); POTASSIUM 4.1 mmol/L (3.5-5.1); SODIUM 138 mmol/L (136-145); TOTAL PROTEIN 5.6 g/dL (6.4-8.2); eGFR NON BLACK RACES > 60 (>60)
[2023-09-07 06:33] LABS: WHITE BLOOD COUNT 6.6 X10^3/uL (3.6-10.0)
[2023-09-07 06:34] LABS: PLATELET MORPHOLOGY COMMENT NORMAL (NORMAL)
[2023-09-07 07:57] VITALS: BP 125/58; PULSE 87; RESP 20
[2023-09-07] MEDS: PROTONIX INJ 40 MG VIAL IVP SCH (08:36)
[2023-09-07] MEDS: CYMBALTA PO SCH (08:45)
[2023-09-07] MEDS: PLAVIX PO SCH (08:45)
[2023-09-07] MEDS: CRESTOR TAB 10 MG PO SCH (08:45)
[2023-09-07] MEDS: ISOSORBIDE MONONITRATE ER 24-HR PO SCH (08:45)
[2023-09-07] MEDS: K-DUR TAB 20 MEQ PO SCH (08:45)
[2023-09-07] MEDS: MARINOL PO SCH (08:46)
[2023-09-07] MEDS ORDERED: D5 1/2 NS 1,000 ML 1,000 ML with MAGNESIUM SULFATE 50% INJ VIAL 1 G IV SCH ×2 (09:00)
[2023-09-07] MEDS ORDERED: CONSULT PHARMACY - POTASSIUM & MAGNESIUM XX SCH (09:00)
[2023-09-07] MEDS ORDERED: MAG-OX TAB PO SCH (09:00)
[2023-09-07] MEDS ORDERED: NEOSPORIN OINT TOP SCH (11:00)
== END 2023-09-07 11:48 | disposition home health service (06) | DRG 605 ==
LOC: MED/SURG 09:11 → ER 09:11 → MED/SURG 14:29
PROVIDERS: ADMIT Surgery; ATTEND Internal Medicine
DX: F41.8 Other specified anxiety disorders; I10 Essential (primary) hypertension; W54.0XXA Bitten by dog, initial encounter; I25.10 Atherosclerotic heart disease of native coronary artery without angina pectoris; R20.2 Paresthesia of skin; S51.801A Unspecified open wound of right forearm, initial encounter; E83.42 Hypomagnesemia; E78.2 Mixed hyperlipidemia; E11.65 Type 2 diabetes mellitus with hyperglycemia; K22.2 Esophageal obstruction; R13.11 Dysphagia, oral phase